=== PATIENT | female | born 1975 | race African-American/Black ===

== ENCOUNTER 2018-01-25 10:52 | Emergency (ER) | payer MEDICAID ==
[~2018-01-25] VITALS: Ht 160 cm; Wt 83.0 kg
[2018-01-25] MEDS ORDERED: KETOROLAC 60MG/2ML VIAL IM ONE (12:15)
[2018-01-25 13:17] VITALS: BP 161/92
== END 2018-01-25 13:23 | disposition home or self-care (01) ==
LOC: ER 10:52
DX: M72.2 Plantar fascial fibromatosis (principal); M25.562 Pain in left knee; I10 Essential (primary) hypertension
CPT/HCPCS: 73560; 96372; 99283; J1885

== ENCOUNTER 2021-08-10 02:32 | Inpatient (IN) | payer MEDICAID ==
[~2021-08-10] VITALS: Ht 165.1 cm; Wt 69.1 kg
[2021-08-10] VITALS (57 sets, daily range): BP systolic 107–181; BP diastolic 66–140
[~2021-08-10 02:32] MED LIST: ALBU18HF2 IH; ATEN-42 MT; ATEN50TA PO; BACL-141 PO; CLON0.3T PO; FLUT1DIS3 INH; GABA-290 PO; KEPP500 PO; LEVE500T98 MT; QUET100T MT; QUET100T PO; QUET50TA PO
[2021-08-10] MEDS ORDERED: METHYLPREDNISOLONE SOD SUCC 125 MG/2 ML VIAL IV STA (02:59)
[2021-08-10] MEDS ORDERED: KETAMINE HCL 50 MG/ML 10ML IV ONE ×2 (03:00→05:15)
[2021-08-10] MEDS ORDERED: ONDANSETRON HCL 4MG/2ML INJ IV ONE (03:00)
[2021-08-10 03:11] LABS: BASOPHILS % 1.3 % (0.0-2.0); EOSINOPHILS % 2.1 % (0.0-5.0); HEMATOCRIT. 35.2 % (36.0-48.0); HEMOGLOBIN. 11.3 g/dL (12.0-16.0); LYMPHOCYTES % 27.8 % (20.0-50.0); MEAN CORPUSCULAR HEMOGLOBIN 25.2 pg (28.0-32.0); MEAN CORPUSCULAR VOLUME 78.6 fL (81.0-99.0); MEAN PLATELET VOLUME 7.2 fl (7.4-10.4); MONOCYTES % 5.1 % (2.0-8.0); NEUTROPHILS % 63.7 % (40.0-76.0); PLATELET 384 x1000/uL (130-400); RED BLOOD CELL COUNT 4.48 mill/uL (4.2-5.4); RED CELL DISTRIBUTION WIDTH 16.4 % (11.6-14.6)
[2021-08-10] MEDS ORDERED: PROPOFOL 200MG/20ML VIAL IV ONE (03:30)
[2021-08-10 03:32] LABS: CHLORIDE 109 mEq/L (98-107)
[2021-08-10] MEDS ORDERED: PROPOFOL 10MG/ML 100ML 100 ML IV ONE (03:45)
[2021-08-10] MEDS ORDERED: MORPHINE SULFATE 2 MG/ML CPJ (NOT FOR IM USE) IV PRN (08:45)
[2021-08-10] MEDS ORDERED: NALOXONE HCL 0.4MG/ML VIAL IV PRN (08:45)
[2021-08-10] MEDS: PROPOFOL 10MG/ML 100ML 100 ML IV PRN ×2 (09:13→14:18)
[2021-08-10] MEDS ORDERED: SODIUM CHLORIDE 0.9% 1000ML BAG (SEPSIS BOLUS) IV ONE (10:45)
[2021-08-10] MEDS ORDERED: DOCUSATE SODIUM 100MG CAPSULE PO PRN (10:45)
[2021-08-10] MEDS ORDERED: LORAZEPAM 1MG TABLET PO PRN (10:45)
[2021-08-10] MEDS ORDERED: LORAZEPAM 0.5MG TABLET PO PRN (10:45)
[2021-08-10] MEDS ORDERED: NALOXONE HCL 0.4 MG/ML 1ML VIAL IV PRN (10:45)
[2021-08-10] MEDS ORDERED: ACETAMINOPHEN 325MG TABLET PO PRN ×2 (10:45)
[2021-08-10] MEDS ORDERED: ONDANSETRON HCL 4MG/2ML INJ IV PRN (10:45)
[2021-08-10] MEDS ORDERED: CLONIDINE 0.1MG TABLET PO PRN (10:45)
[2021-08-10] MEDS: DEXT 5%/0.45% NACL 1000ML 1,000 ML IV SCH (11:20)
[2021-08-10 11:31] LABS: BG BASE EXCESS -1.8 mmol/L (-2.0-2.0); BG CARBOXYHEMOGLOBIN 0.3 % (0.5-1.5); BG DEOXYHEMOGLOBIN 0.8 % (0.0-5.0); BG HCO3 ACT 23.3 mmol/L (22.0-26.0); BG METHEMOGLOBIN 0.4 % (0.0-1.5); BG OXYGEN SATURATION 99.2 % (92.0-98.5); BG OXYHEMOGLOBIN 98.5 % (94.0-97.0); BG PCO2 40.9 mmHg (35.0-45.0); BG PH 7.374 (7.350-7.450); BG PO2 187.1 mmHg (75.0-100.0); BG SAMPLE SITE RIGHT BRACHIAL; BG TOTAL HEMOGLOBIN 11.4 g/dL (12.0-18.0); BG VENT MODE VENT - AC
[2021-08-10] MEDS: HYDROMORPHONE HCL/PF 2MG/ML CPJ IV PRN ×2 (12:54→21:48)
[2021-08-10] MEDS: FENTANYL 2500MCG/250ML PMX 250 ML IV PRN (13:36)
[2021-08-10] MEDS ORDERED: CHLORDIAZEPOXIDE 25MG CAPSULE PO SCH (14:00)
[2021-08-10] MEDS: LABETALOL 5MG/ML SYR 20 MG/4 ML SYRINGE IV PRN (14:29)
[2021-08-10] MEDS ORDERED: ATOR40TA70 PO (15:21)
[2021-08-10] MEDS ORDERED: AMLO10TA80 PO (15:21)
[2021-08-10] MEDS ORDERED: LACO100T4 (15:21)
[2021-08-10] MEDS ORDERED: NON FORMULARY PATIENT HOME MED XX SCH (15:30)
[2021-08-10] MEDS ORDERED: LACO50TA6 (16:15)
[2021-08-10 16:29] LABS: INR 1.1; PARTIAL THROMBOPLASTIN TIME < 21.0 sec (23.4-31.0); PROTHROMBIN TIME 11.6 sec (9.6-11.0)
[2021-08-10 16:46] LABS: TOTAL IRON BINDING CAPACITY 557 ug/dL (250-450)
[2021-08-10 16:50] LABS: HCG SCREEN NEGATIVE
[2021-08-10 16:51] LABS: *AMPHETAMINES SCREEN URINE NEGATIVE (NEGATIVE); *BARBITURATES SCREEN URINE NEGATIVE (NEGATIVE); *BENZODIAZEPINES SCREEN URINE NEGATIVE (NEGATIVE); *COCAINE SCREEN URINE NEGATIVE (NEGATIVE); METHADONE URINE SCREEN NEGATIVE (NEGATIVE); PHENCYCLIDINE URINE SCREEN NEGATIVE (NEGATIVE)
[2021-08-10] MEDS: MIDAZOLAM 100MG/100ML PMX 100 ML IV PRN (16:57)
[2021-08-10] MEDS: ATORVASTATIN CALCIUM 40MG TABLET PO SCH (17:03)
[2021-08-10 17:07] LABS: CANNABINOID URINE SCREEN PRESUMTIVE POSITIVE (NEGATIVE); OPIATES URINE SCREEN PRESUMTIVE POSITIVE (NEGATIVE)
[2021-08-10] MEDS: IPRATROPIUM/ALBUTEROL 0.5-3(2.5)MG/3ML NEB HHN PRN (20:24)
[2021-08-10] MEDS: LACOSAMIDE 100 MG TABLET PO SCH (21:47)
[2021-08-10] MEDS: LEVETIRACETAM 500MG TABLET PO SCH (21:47)
[2021-08-11] VITALS (79 sets, daily range): BP systolic 89–175; BP diastolic 30–163
[2021-08-11] MEDS: DEXT 5%/0.45% NACL 1000ML 1,000 ML IV SCH ×2 (01:28→15:51)
[2021-08-11] MEDS: HYDROMORPHONE HCL/PF 2MG/ML CPJ IV PRN ×6 (01:29→20:45)
[2021-08-11] MEDS: FENTANYL 2500MCG/250ML PMX 250 ML IV PRN (05:52)
[2021-08-11 06:17] LABS: BASOPHILS % 0.8 % (0.0-2.0); EOSINOPHILS % 0.2 % (0.0-5.0); HEMATOCRIT. 26.9 % (36.0-48.0); HEMOGLOBIN. 8.6 g/dL (12.0-16.0); MEAN CORPUSCULAR HEMOGLOBIN 25.2 pg (28.0-32.0); MEAN CORPUSCULAR VOLUME 79.1 fL (81.0-99.0); MEAN PLATELET VOLUME 8.5 fl (7.4-10.4); MONOCYTES % 8.2 % (2.0-8.0); NEUTROPHILS % 78.8 % (40.0-76.0); PLATELET 210 x1000/uL (130-400); RED BLOOD CELL COUNT 3.41 mill/uL (4.2-5.4); RED CELL DISTRIBUTION WIDTH 16.5 % (11.6-14.6)
[2021-08-11 06:33] LABS: CHLORIDE 108 mEq/L (98-107)
[2021-08-11] MEDS: LACOSAMIDE 100 MG TABLET PO SCH ×2 (09:00→21:59)
[2021-08-11] MEDS: ATORVASTATIN CALCIUM 40MG TABLET PO SCH (09:00)
[2021-08-11] MEDS: LEVETIRACETAM 500MG TABLET PO SCH ×2 (09:00→21:59)
[2021-08-11 09:45] LABS: BG CARBOXYHEMOGLOBIN 0.3 % (0.5-1.5); BG FRACTION INSPIRED OXYGEN 40; BG METHEMOGLOBIN 0.3 % (0.0-1.5); BG OXYHEMOGLOBIN 96.4 % (94.0-97.0); BG PH 7.417 (7.350-7.450); BG PO2 93.7 mmHg (75.0-100.0); BG SAMPLE SITE RIGHT RADIAL; BG TOTAL HEMOGLOBIN 10.1 g/dL (12.0-18.0); BG VENT MODE VENT - AC
[2021-08-11] MEDS ORDERED: LEVETIRACETAM 500MG PREMIX 100 ML IV NR (10:00)
[2021-08-11] MEDS ORDERED: LEVETIRACETAM 500 MG in SODIUM CHLORIDE 0.9% 100 ML IV ONE (10:00)
[2021-08-11] MEDS ORDERED: LIDOCAINE HCL/PF 1% 10 MG/ML 5ML VIAL ONE (12:35)
[2021-08-11] MEDS ORDERED: ROCURONIUM BROMIDE 10MG/ML VIAL 5ML IV ONE (13:58)
[2021-08-11] MEDS ORDERED: MIDAZOLAM HCL 5 MG/5 ML VIAL ONE (14:19)
[2021-08-11] MEDS ORDERED: FENTANYL CITRATE/PF 50MCG/ML 2ML VIAL ONE ×2 (14:20→14:44)
[2021-08-11] MEDS ORDERED: PROPOFOL 200MG/20ML VIAL IV ONE (14:42)
[2021-08-11] MEDS: MIDAZOLAM 100MG/100ML PMX 100 ML IV PRN (15:52)
[2021-08-12] VITALS (84 sets, daily range): BP systolic 93–189; BP diastolic 35–129
[2021-08-12] MEDS: HYDROMORPHONE HCL/PF 2MG/ML CPJ IV PRN ×5 (01:36→23:26)
[2021-08-12 05:15] LABS: BASOPHILS % 0.3 % (0.0-2.0); EOSINOPHILS % 1.3 % (0.0-5.0); HEMATOCRIT. 27.6 % (36.0-48.0); LYMPHOCYTES % 15.9 % (20.0-50.0); MEAN CORPUSCULAR HEMOGLOBIN 25.5 pg (28.0-32.0); MEAN CORPUSCULAR VOLUME 78.4 fL (81.0-99.0); MONOCYTES % 9.4 % (2.0-8.0); NEUTROPHILS % 73.1 % (40.0-76.0); PLATELET 237 x1000/uL (130-400); RED BLOOD CELL COUNT 3.53 mill/uL (4.2-5.4); RED CELL DISTRIBUTION WIDTH 16.7 % (11.6-14.6)
[2021-08-12 05:21] LABS: CHLORIDE 104 mEq/L (98-107)
[2021-08-12] MEDS: DEXT 5%/0.45% NACL 1000ML 1,000 ML IV SCH ×2 (05:31→19:57)
[2021-08-12] MEDS: ATORVASTATIN CALCIUM 40MG TABLET PO SCH (09:09)
[2021-08-12] MEDS: LACOSAMIDE 100 MG TABLET PO SCH ×3 (09:09→21:24)
[2021-08-12] MEDS: LEVETIRACETAM 500MG TABLET PO SCH ×3 (09:09→21:24)
[2021-08-12] MEDS: FENTANYL 2500MCG/250ML PMX 250 ML IV PRN (09:12)
[2021-08-12 11:10] LABS: BG BASE EXCESS -0.3 mmol/L (-2.0-2.0); BG CARBOXYHEMOGLOBIN 0.2 % (0.5-1.5); BG FRACTION INSPIRED OXYGEN 40; BG HCO3 ACT 22.7 mmol/L (22.0-26.0); BG METHEMOGLOBIN 1.3 % (0.0-1.5); BG OXYHEMOGLOBIN 95.5 % (94.0-97.0); BG PCO2 31.3 mmHg (35.0-45.0); BG PH 7.479 (7.350-7.450); BG PO2 97.7 mmHg (75.0-100.0); BG SAMPLE SITE RIGHT RADIAL; BG TOTAL HEMOGLOBIN 9.5 g/dL (12.0-18.0); BG VENT MODE VENT - AC
[2021-08-12 16:25] LABS: BG BASE EXCESS -2.3 mmol/L (-2.0-2.0); BG CARBOXYHEMOGLOBIN 0.3 % (0.5-1.5); BG DEOXYHEMOGLOBIN 11.7 % (0.0-5.0); BG FRACTION INSPIRED OXYGEN 35; BG HCO3 ACT 21.2 mmol/L (22.0-26.0); BG METHEMOGLOBIN 0.2 % (0.0-1.5); BG OXYGEN SATURATION 88.2 % (92.0-98.5); BG OXYHEMOGLOBIN 87.8 % (94.0-97.0); BG PCO2 32.3 mmHg (35.0-45.0); BG PH 7.436 (7.350-7.450); BG PO2 54.8 mmHg (75.0-100.0); BG SAMPLE SITE RIGHT BRACHIAL; BG TOTAL HEMOGLOBIN 10.3 g/dL (12.0-18.0); BG VENT MODE VENT - CPAP
[2021-08-12] MEDS ORDERED: DIPHENHYDRAMINE 25MG CAPSULE PO PRN (18:00)
[2021-08-13] VITALS (25 sets, daily range): BP systolic 97–180; BP diastolic 53–110
[2021-08-13] MEDS ORDERED: HYDROMORPHONE HCL/PF 2MG/ML CPJ IV PRN (00:45)
[2021-08-13] MEDS: LEVETIRACETAM 500MG PREMIX 100 ML IV SCH ×2 (01:12→13:14)
[2021-08-13] MEDS: HYDROMORPHONE HCL/PF 2MG/ML CPJ IV PRN ×11 (01:31→22:07)
[2021-08-13] MEDS: ATORVASTATIN CALCIUM 40MG TABLET PO SCH ×2 (09:00→09:14)
[2021-08-13] MEDS: LACOSAMIDE 100 MG TABLET PO SCH ×3 (09:00→20:09)
[2021-08-13] MEDS: DEXT 5%/0.45% NACL 1000ML 1,000 ML IV SCH (10:15)
[2021-08-13 11:19] LABS: BASOPHILS % 0.2 % (0.0-2.0); EOSINOPHILS % 2.1 % (0.0-5.0); HEMATOCRIT. 27.8 % (36.0-48.0); HEMOGLOBIN. 9.1 g/dL (12.0-16.0); LYMPHOCYTES % 11.2 % (20.0-50.0); MEAN CORPUSCULAR HEMOGLOBIN 25.7 pg (28.0-32.0); MEAN PLATELET VOLUME 8.2 fl (7.4-10.4); MONOCYTES % 12.8 % (2.0-8.0); NEUTROPHILS % 73.7 % (40.0-76.0); PLATELET 238 x1000/uL (130-400); RED BLOOD CELL COUNT 3.56 mill/uL (4.2-5.4); RED CELL DISTRIBUTION WIDTH 16.2 % (11.6-14.6)
[2021-08-13 11:52] LABS: CHLORIDE 101 mEq/L (98-107)
[2021-08-13] MEDS ORDERED: POTASSIUM CHLORIDE INJ 40 MEQ in DEXT 5% WATER 250 ML IV SCH (14:00)
[2021-08-13] MEDS: IPRATROPIUM/ALBUTEROL 0.5-3(2.5)MG/3ML NEB HHN PRN (17:50)
[2021-08-14] VITALS (14 sets, daily range): BP systolic 100–182; BP diastolic 56–106
[2021-08-14] MEDS: HYDROMORPHONE HCL/PF 2MG/ML CPJ IV PRN ×7 (00:17→22:10)
[2021-08-14] MEDS: LEVETIRACETAM 500MG PREMIX 100 ML IV SCH ×2 (02:27→12:28)
[2021-08-14] MEDS: DEXT 5%/0.45% NACL 1000ML 1,000 ML IV SCH ×2 (02:28→14:08)
[2021-08-14 08:56] LABS: HEMATOCRIT. 31.1 % (36.0-48.0); HEMOGLOBIN. 10.2 g/dL (12.0-16.0); MEAN CORPUSCULAR HEMOGLOBIN 24.9 pg (28.0-32.0); MEAN CORPUSCULAR VOLUME 75.6 fL (81.0-99.0); RED BLOOD CELL COUNT 4.11 mill/uL (4.2-5.4); RED CELL DISTRIBUTION WIDTH 16.1 % (11.6-14.6)
[2021-08-14] MEDS: LACOSAMIDE 100 MG TABLET PO SCH ×2 (09:00→21:00)
[2021-08-14] MEDS: ATORVASTATIN CALCIUM 40MG TABLET PO SCH (09:00)
[2021-08-14 09:07] LABS: CHLORIDE 97 mEq/L (98-107)
[2021-08-14 10:21] LABS: PLATELET ESTIMATE NORMAL
[2021-08-14 10:25] LABS: MEAN PLATELET VOLUME 7.6 fl (7.4-10.4); PLATELET 300 x1000/uL (130-400)
[2021-08-14] MEDS: KETOROLAC 30MG/ML VIAL IV PRN ×2 (10:46→18:11)
[2021-08-14] MEDS ORDERED: POTASSIUM CHLORIDE INJ 40 MEQ in DEXT 5% WATER 250 ML IV SCH ×2 (12:00→14:00)
[2021-08-14 12:03] LABS: BG BASE EXCESS -4.2 mmol/L (-2.0-2.0); BG CARBOXYHEMOGLOBIN 0.3 % (0.5-1.5); BG DEOXYHEMOGLOBIN 9.4 % (0.0-5.0); BG FRACTION INSPIRED OXYGEN 21; BG HCO3 ACT 19.3 mmol/L (22.0-26.0); BG METHEMOGLOBIN 0.2 % (0.0-1.5); BG OXYGEN SATURATION 90.6 % (92.0-98.5); BG OXYHEMOGLOBIN 90.1 % (94.0-97.0); BG PCO2 30.4 mmHg (35.0-45.0); BG PH 7.421 (7.350-7.450); BG PO2 59.1 mmHg (75.0-100.0); BG SAMPLE SITE RIGHT RADIAL; BG TOTAL HEMOGLOBIN 10.8 g/dL (12.0-18.0); BG VENT MODE ROOM AIR
[2021-08-14] MEDS: PIPERACILLIN/TAZOBACTAM 3.375 G in DEXTROSE 5% WATER 50 ML IV SCH ×2 (14:07→21:21)
[2021-08-15] VITALS (25 sets, daily range): BP systolic 97–187; BP diastolic 50–139
[2021-08-15] MEDS: LEVETIRACETAM 500MG PREMIX 100 ML IV SCH ×2 (00:11→14:16)
[2021-08-15] MEDS: HYDROMORPHONE HCL/PF 2MG/ML CPJ IV PRN ×4 (05:22→21:59)
[2021-08-15] MEDS: DEXT 5%/0.45% NACL 1000ML 1,000 ML IV SCH ×2 (05:23→18:39)
[2021-08-15] MEDS: PIPERACILLIN/TAZOBACTAM 3.375 G in DEXTROSE 5% WATER 50 ML IV SCH ×3 (05:23→22:06)
[2021-08-15] MEDS: KETOROLAC 30MG/ML VIAL IV PRN ×2 (07:51→18:56)
[2021-08-15] MEDS: ATORVASTATIN CALCIUM 40MG TABLET PO SCH (08:20)
[2021-08-15] MEDS: LACOSAMIDE 100 MG TABLET PO SCH ×2 (08:20→21:00)
[2021-08-15] MEDS: IPRATROPIUM/ALBUTEROL 0.5-3(2.5)MG/3ML NEB HHN PRN ×3 (08:46→16:26)
[2021-08-15 10:09] LABS: BG BASE EXCESS -2.3 mmol/L (-2.0-2.0); BG CARBOXYHEMOGLOBIN 0.1 % (0.5-1.5); BG DEOXYHEMOGLOBIN 3.7 % (0.0-5.0); BG FRACTION INSPIRED OXYGEN 40; BG HCO3 ACT 21.3 mmol/L (22.0-26.0); BG METHEMOGLOBIN 1.2 % (0.0-1.5); BG OXYGEN SATURATION 96.3 % (92.0-98.5); BG PCO2 32.2 mmHg (35.0-45.0); BG PH 7.438 (7.350-7.450); BG PO2 92.3 mmHg (75.0-100.0); BG SAMPLE SITE RIGHT RADIAL; BG TOTAL HEMOGLOBIN 9.7 g/dL (12.0-18.0); BG VENT MODE COOL AEROSOL
[2021-08-15] MEDS ORDERED: SODIUM CHLORIDE 3% FOR INH 15ML VIAL NEB INH SCH (12:00)
[2021-08-15] MEDS: SODIUM CHLORIDE 3% FOR INH 4ML UD NEB INH SCH (12:33)
[2021-08-15 16:15] LABS: HEMATOCRIT. 29.8 % (36.0-48.0); HEMOGLOBIN. 9.5 g/dL (12.0-16.0); MEAN CORPUSCULAR HEMOGLOBIN 25.4 pg (28.0-32.0); MEAN CORPUSCULAR VOLUME 79.7 fL (81.0-99.0); MEAN PLATELET VOLUME 8.1 fl (7.4-10.4); PLATELET 273 x1000/uL (130-400); RED BLOOD CELL COUNT 3.75 mill/uL (4.2-5.4); RED CELL DISTRIBUTION WIDTH 16.4 % (11.6-14.6)
[2021-08-15] MEDS: ACETYLCYSTEINE 100MG/ML 10% VIAL 4ML INH SCH (16:25)
[2021-08-15 16:30] LABS: CHLORIDE 101 mEq/L (98-107)
[2021-08-15] MEDS ORDERED: NALOXONE HCL 0.4MG/ML VIAL IV PRN (17:30)
[2021-08-15 17:54] LABS: PLATELET ESTIMATE NORMAL
[2021-08-16] VITALS (19 sets, daily range): BP systolic 106–174; BP diastolic 60–105
[2021-08-16] MEDS: KETOROLAC 30MG/ML VIAL IV PRN ×5 (00:01→23:36)
[2021-08-16] MEDS: LEVETIRACETAM 500MG PREMIX 100 ML IV SCH ×2 (00:02→12:26)
[2021-08-16] MEDS: SODIUM CHLORIDE 3% FOR INH 4ML UD NEB INH SCH ×2 (00:03→05:39)
[2021-08-16] MEDS: IPRATROPIUM/ALBUTEROL 0.5-3(2.5)MG/3ML NEB HHN PRN (00:20)
[2021-08-16] MEDS: ACETYLCYSTEINE 100MG/ML 10% VIAL 4ML INH SCH (00:20)
[2021-08-16] MEDS: HYDROMORPHONE HCL/PF 2MG/ML CPJ IV PRN ×4 (03:41→21:21)
[2021-08-16] MEDS: PIPERACILLIN/TAZOBACTAM 3.375 G in DEXTROSE 5% WATER 50 ML IV SCH ×3 (05:38→22:30)
[2021-08-16 06:57] LABS: HEMATOCRIT. 24.8 % (36.0-48.0); HEMOGLOBIN. 8.4 g/dL (12.0-16.0); MEAN CORPUSCULAR HEMOGLOBIN 27.7 pg (28.0-32.0); MEAN CORPUSCULAR VOLUME 81.5 fL (81.0-99.0); RED BLOOD CELL COUNT 3.05 mill/uL (4.2-5.4); RED CELL DISTRIBUTION WIDTH 16.3 % (11.6-14.6)
[2021-08-16 07:29] LABS: CHLORIDE 104 mEq/L (98-107)
[2021-08-16] MEDS: LACOSAMIDE 100 MG TABLET PO SCH ×2 (08:32→21:00)
[2021-08-16] MEDS: ATORVASTATIN CALCIUM 40MG TABLET PO SCH (08:32)
[2021-08-16] MEDS: DEXT 5%/0.45% NACL 1000ML 1,000 ML IV SCH ×2 (08:49→23:37)
[2021-08-16] MEDS: KCL 20MEQ/100ML PREMIX 100 ML IV SCH ×2 (08:49→12:49)
[2021-08-16 08:53] LABS: MEAN PLATELET VOLUME 7.9 fl (7.4-10.4); PLATELET ESTIMATE NORMAL
[2021-08-16 08:54] LABS: PLATELET 270 x1000/uL (130-400)
[2021-08-16] MEDS ORDERED: HYDROMORPHONE HCL/PF 2MG/ML CPJ IV SCH (12:30)
[2021-08-17] VITALS (16 sets, daily range): BP systolic 85–212; BP diastolic 30–115
[2021-08-17] MEDS: LEVETIRACETAM 500MG PREMIX 100 ML IV SCH ×2 (00:37→13:31)
[2021-08-17] MEDS: HYDROMORPHONE HCL/PF 2MG/ML CPJ IV PRN ×3 (03:43→17:07)
[2021-08-17] MEDS: PIPERACILLIN/TAZOBACTAM 3.375 G in DEXTROSE 5% WATER 50 ML IV SCH ×3 (05:58→22:00)
[2021-08-17] MEDS: KETOROLAC 30MG/ML VIAL IV PRN ×3 (06:00→18:19)
[2021-08-17] MEDS: ATORVASTATIN CALCIUM 40MG TABLET PO SCH (09:00)
[2021-08-17] MEDS: LACOSAMIDE 100 MG TABLET PO SCH ×2 (09:00→21:00)
[2021-08-17] MEDS ORDERED: HYDROMORPHONE HCL/PF 2MG/ML CPJ IV NR (09:45)
[2021-08-17 14:51] LABS: HEMOGLOBIN. 8.6 g/dL (12.0-16.0); MEAN CORPUSCULAR HEMOGLOBIN 24.8 pg (28.0-32.0); MEAN CORPUSCULAR VOLUME 77.5 fL (81.0-99.0); MEAN PLATELET VOLUME 7.5 fl (7.4-10.4); PLATELET 340 x1000/uL (130-400); RED BLOOD CELL COUNT 3.48 mill/uL (4.2-5.4); RED CELL DISTRIBUTION WIDTH 16.4 % (11.6-14.6)
[2021-08-17 15:35] LABS: CHLORIDE 107 mEq/L (98-107)
[2021-08-17] MEDS: DEXT 5%/0.45% NACL 1000ML 1,000 ML IV SCH (17:07)
[2021-08-17] MEDS: LABETALOL 5MG/ML SYR 20 MG/4 ML SYRINGE IV PRN (17:07)
[2021-08-17 17:30] LABS: PLATELET ESTIMATE NORMAL
[2021-08-18] VITALS (9 sets, daily range): BP systolic 70–178; BP diastolic 46–105
[2021-08-18] MEDS: LEVETIRACETAM 500MG PREMIX 100 ML IV SCH (01:00)
[2021-08-18] MEDS: HYDROMORPHONE HCL/PF 2MG/ML CPJ IM PRN ×4 (02:43→20:16)
[2021-08-18] MEDS: DEXT 5%/0.45% NACL 1000ML 1,000 ML IV SCH (04:32)
[2021-08-18] MEDS: PIPERACILLIN/TAZOBACTAM 3.375 G in DEXTROSE 5% WATER 50 ML IV SCH ×3 (05:53→22:00)
[2021-08-18 08:36] LABS: HEMATOCRIT. 25.3 % (36.0-48.0); HEMOGLOBIN. 8.2 g/dL (12.0-16.0); MEAN CORPUSCULAR HEMOGLOBIN 24.7 pg (28.0-32.0); MEAN CORPUSCULAR VOLUME 76.2 fL (81.0-99.0); MEAN PLATELET VOLUME 7.4 fl (7.4-10.4); PLATELET 363 x1000/uL (130-400); RED BLOOD CELL COUNT 3.32 mill/uL (4.2-5.4); RED CELL DISTRIBUTION WIDTH 16.2 % (11.6-14.6)
[2021-08-18] MEDS: LACOSAMIDE 100 MG TABLET PO SCH ×2 (08:44→20:14)
[2021-08-18] MEDS: ATORVASTATIN CALCIUM 40MG TABLET PO SCH (08:44)
[2021-08-18 08:49] LABS: CHLORIDE 105 mEq/L (98-107)
[2021-08-18] MEDS ORDERED: BARIUM SULFATE 176 GM SUSP.RECON ONE (10:02)
[2021-08-18] MEDS ORDERED: KCL 20MEQ/100ML PREMIX 100 ML IV SCH (12:00)
[2021-08-18 12:57] LABS: PLATELET ESTIMATE NORMAL
[2021-08-18] MEDS ORDERED: POTASSIUM CHLORIDE 20MEQ TABLET SR PO NR (17:30)
[2021-08-18] MEDS: LEVETIRACETAM 500MG TABLET PO SCH (20:15)
[2021-08-19] VITALS (9 sets, daily range): BP systolic 123–163; BP diastolic 72–98
[2021-08-19] MEDS: HYDROMORPHONE HCL/PF 2MG/ML CPJ IM PRN ×3 (02:41→15:03)
[2021-08-19] MEDS: PIPERACILLIN/TAZOBACTAM 3.375 G in DEXTROSE 5% WATER 50 ML IV SCH (05:22)
[2021-08-19] MEDS: ATORVASTATIN CALCIUM 40MG TABLET PO SCH (08:54)
[2021-08-19] MEDS: LACOSAMIDE 100 MG TABLET PO SCH (08:54)
[2021-08-19] MEDS: LEVETIRACETAM 500MG TABLET PO SCH (08:54)
[2021-08-19] MEDS: DEXT 5%/0.45% NACL 1000ML 1,000 ML IV SCH ×2 (09:15→10:00)
[2021-08-19] MEDS ORDERED: FOLIC ACID 1MG TABLET PO SCH (10:15)
[2021-08-19] MEDS ORDERED: FOLI-43 MT (10:19)
[2021-08-19] MEDS ORDERED: FERR325T6 MT (10:19)
[2021-08-19] MEDS ORDERED: GUAI600T44 MT (10:28)
[2021-08-19] MEDS ORDERED: FERROUS SULFATE 325MG TABLET PO SCH (13:00)
== END 2021-08-19 16:15 | disposition home health service (06) | DRG 813 ==
LOC: ER 02:32 → CVICU 05:48 → ENRESERV 07:23 → 5EST 08-18 13:00
PROVIDERS: ADMIT Internal Medicine; ATTEND Internal Medicine
PROC: 0BH17EZ Insertion of Endotracheal Airway into Trachea, Via Natural or Artificial Opening (ICD-10-PCS; principal; 2021-08-10)
PROC: 5A1945Z Respiratory Ventilation, 24-96 Consecutive Hours (ICD-10-PCS; 2021-08-10)
PROC: 0W9B30Z Drainage of Left Pleural Cavity with Drainage Device, Percutaneous Approach (ICD-10-PCS; 2021-08-10)
PROC: 0W9930Z Drainage of Right Pleural Cavity with Drainage Device, Percutaneous Approach (ICD-10-PCS; 2021-08-10)
PROC: 0W9930Z Drainage of Right Pleural Cavity with Drainage Device, Percutaneous Approach (ICD-10-PCS; 2021-08-11)
PROC: 0B21XFZ Change Tracheostomy Device in Trachea, External Approach (ICD-10-PCS; 2021-08-11)
DX: T85.628A Displacement of other specified internal prosthetic devices, implants and grafts, initial encounter (principal); J96.20 Acute and chronic respiratory failure, unspecified whether with hypoxia or hypercapnia; E87.2 Acidosis; J98.2 Interstitial emphysema; I31.9 Disease of pericardium, unspecified; D50.9 Iron deficiency anemia, unspecified; F10.20 Alcohol dependence, uncomplicated; J93.9 Pneumothorax, unspecified; I10 Essential (primary) hypertension; E53.8 Deficiency of other specified B group vitamins; F17.210 Nicotine dependence, cigarettes, uncomplicated; Z20.822 Contact with and (suspected) exposure to COVID-19; Y83.8 Other surgical procedures as the cause of abnormal reaction of the patient, or of later complication, without mention of misadventure at the time of the procedure; G40.909 Epilepsy, unspecified, not intractable, without status epilepticus; N20.0 Calculus of kidney; Z78.1 Physical restraint status; Z86.16 Personal history of COVID-19; Z79.899 Other long term (current) drug therapy; Z93.0 Tracheostomy status; Y92.89 Other specified places as the place of occurrence of the external cause; Z71.6 Tobacco abuse counseling; R00.0 Tachycardia, unspecified; Z86.19 Personal history of other infectious and parasitic diseases
CPT/HCPCS: 36415; 36600; 71045; 71250; 74018; 74176; 74230; 76604; 80048; 80053; 80305; 80339; 82375; 82607; 82728; 82746; 82805; 83540; 83550; 83605; 83880; 84484; 84703; 85025; 85379; 87070; 87426; 92610; 92611; 93005; 94002; 94003; 94640; 94660; 99285; C1893; J1170; J1885; J1953; J2250; J2270; J2405; J2543; J2704; J2930; J3010; J3480; J3490; J7060; J7608; Q0163

== ENCOUNTER 2021-09-09 02:19 | Inpatient (IN) | payer MEDICAID ==
[~2021-09-09] VITALS: Ht 157.5 cm; Wt 61.8 kg
[~2021-09-09 02:19] MED LIST changes: +AMLO10TA80 PO; -ATEN50TA PO; +ATOR40TA70 PO; -CLON0.3T PO; +FERR325T6 MT; +FOLI-43 MT; +GUAI600T44 MT; +LACO100T4; +LACO50TA6; -LEVE500T98 MT; -QUET100T PO; -QUET50TA PO
[2021-09-09] MEDS ORDERED: METHYLPREDNISOLONE SOD SUCC 125 MG/2 ML VIAL IV STA (02:32)
[2021-09-09] MEDS ORDERED: IPRATROPIUM BROMIDE (0.02%) 0.5MG/2.5ML NEB HHN STA (02:32)
[2021-09-09] MEDS ORDERED: ALBUTEROL (0.083%) 2.5MG/3ML NEB HHN STA (02:32)
[2021-09-09] MEDS ORDERED: MAGNESIUM 2 G PREMIX 50 ML IV ONE (02:45)
[2021-09-09] MEDS ORDERED: RACEPINEPHRINE 2.25% 0.5ML NEB VIAL HHN ONE (02:45)
[2021-09-09] MEDS ORDERED: ASPIRIN 81MG TABLET PO ONE (02:45)
[2021-09-09 03:13] LABS: BASOPHILS % 0.5 % (0.0-2.0); EOSINOPHILS % 3.2 % (0.0-5.0); HEMATOCRIT. 34.7 % (36.0-48.0); HEMOGLOBIN. 10.8 g/dL (12.0-16.0); LYMPHOCYTES % 22.9 % (20.0-50.0); MEAN CORPUSCULAR HEMOGLOBIN 24.2 pg (28.0-32.0); MEAN CORPUSCULAR VOLUME 77.6 fL (81.0-99.0); MEAN PLATELET VOLUME 7.4 fl (7.4-10.4); MONOCYTES % 10.3 % (2.0-8.0); NEUTROPHILS % 63.1 % (40.0-76.0); PLATELET 278 x1000/uL (130-400); RED BLOOD CELL COUNT 4.48 mill/uL (4.2-5.4); RED CELL DISTRIBUTION WIDTH 17.1 % (11.6-14.6)
[2021-09-09] MEDS ORDERED: CEFTRIAXONE 1 G PREMIX 50 ML IV NR (03:15)
[2021-09-09 03:22] LABS: CHLORIDE 110 mEq/L (98-107)
[2021-09-09 03:31] LABS: ETHANOL BLOOD < 10 mg/dL
[2021-09-09] MEDS ORDERED: AZITHROMYCIN 500MG/250ML 250 ML IV SCH (04:00)
[2021-09-09] MEDS ORDERED: METHYLPREDNISOLONE SOD SUCC 125 MG/2 ML VIAL IV NR ×2 (04:21→14:30)
[2021-09-09] MEDS ORDERED: ASPIRIN 81MG TABLET PO NR (04:30)
[2021-09-09 06:21] LABS: *AMPHETAMINES SCREEN URINE NEGATIVE (NEGATIVE); *BARBITURATES SCREEN URINE NEGATIVE (NEGATIVE); *BENZODIAZEPINES SCREEN URINE NEGATIVE (NEGATIVE); *COCAINE SCREEN URINE NEGATIVE (NEGATIVE); METHADONE URINE SCREEN NEGATIVE (NEGATIVE); OPIATES URINE SCREEN NEGATIVE (NEGATIVE); PHENCYCLIDINE URINE SCREEN NEGATIVE (NEGATIVE)
[2021-09-09 06:28] LABS: CANNABINOID URINE SCREEN PRESUMTIVE POSITIVE (NEGATIVE)
[2021-09-09] MEDS ORDERED: NALOXONE HCL 0.4MG/ML VIAL IV PRN (06:30)
[2021-09-09] MEDS: RACEPINEPHRINE 2.25% 0.5ML NEB VIAL HHN PRN ×4 (06:35→16:32)
[2021-09-09] MEDS: HYDRALAZINE 20MG/ML VIAL IV PRN (06:40)
[2021-09-09] MEDS: MORPHINE SULFATE 4 MG/ML CPJ (NOT FOR IM USE) IV PRN ×3 (06:40→20:08)
[2021-09-09 09:30] VITALS: BP 166/98
[2021-09-09] MEDS ORDERED: BACLOFEN 10MG TABLET PO PRN (10:00)
[2021-09-09] MEDS: AMLODIPINE 10MG TABLET PO SCH (10:16)
[2021-09-09] MEDS: GABAPENTIN 300MG CAPSULE PO PRN ×2 (10:16→20:09)
[2021-09-09 10:46] LABS: BG CARBOXYHEMOGLOBIN 0.3 % (0.5-1.5); BG DEOXYHEMOGLOBIN 0.1 % (0.0-5.0); BG FRACTION INSPIRED OXYGEN 100; BG HCO3 ACT 25.1 mmol/L (22.0-26.0); BG METHEMOGLOBIN 0.4 % (0.0-1.5); BG OXYGEN SATURATION 99.9 % (92.0-98.5); BG OXYHEMOGLOBIN 99.2 % (94.0-97.0); BG PCO2 42.6 mmHg (35.0-45.0); BG PH 7.388 (7.350-7.450); BG PO2 452.8 mmHg (75.0-100.0); BG SAMPLE SITE RIGHT RADIAL; BG TOTAL HEMOGLOBIN 10.9 g/dL (12.0-18.0); BG VENT MODE MASK - NRB
[2021-09-09 11:09] VITALS: BP 166/98
[2021-09-09] MEDS ORDERED: IPRATROPIUM/ALBUTEROL 0.5-3(2.5)MG/3ML NEB HHN PRN (11:15)
[2021-09-09 11:57] VITALS: BP 133/92
[2021-09-09] MEDS: IPRATROPIUM/ALBUTEROL 0.5-3(2.5)MG/3ML NEB HHN SCH ×3 (12:24→20:22)
[2021-09-09] MEDS: METHYLPREDNISOLONE SOD SUCC 125 MG/2 ML VIAL IV SCH ×2 (13:43→20:08)
[2021-09-09] MEDS ORDERED: POTASSIUM CHLORIDE 20MEQ TABLET SR PO NR (14:15)
[2021-09-09] MEDS: ACETYLCYSTEINE 100MG/ML 10% VIAL 4ML INH SCH (16:32)
[2021-09-09 17:51] VITALS: BP 150/84
[2021-09-09 20:00] VITALS: BP_SYST 100; BP_SYST 128; BP_DIAS 70; BP_DIAS 73
[2021-09-09] MEDS: ATORVASTATIN CALCIUM 40MG TABLET PO SCH (20:09)
[2021-09-09] MEDS: ATENOLOL 25MG TABLET PO SCH (20:10)
[2021-09-09] MEDS ORDERED: QUETIAPINE FUMARATE 50MG TABLET PO SCH (21:00)
[2021-09-09 21:09] LABS: BG BASE EXCESS -3.6 mmol/L (-2.0-2.0); BG CARBOXYHEMOGLOBIN 0.3 % (0.5-1.5); BG DEOXYHEMOGLOBIN 1.7 % (0.0-5.0); BG FRACTION INSPIRED OXYGEN 32; BG HCO3 ACT 22.3 mmol/L (22.0-26.0); BG METHEMOGLOBIN 0.2 % (0.0-1.5); BG OXYGEN SATURATION 98.3 % (92.0-98.5); BG OXYHEMOGLOBIN 97.8 % (94.0-97.0); BG PCO2 43.9 mmHg (35.0-45.0); BG PH 7.324 (7.350-7.450); BG PO2 116.7 mmHg (75.0-100.0); BG SAMPLE SITE RIGHT RADIAL; BG TOTAL HEMOGLOBIN 10.6 g/dL (12.0-18.0); BG VENT MODE NASAL CANNULA
[2021-09-09 22:00] VITALS: BP 128/70
[2021-09-10] VITALS (11 sets, daily range): BP systolic 103–156; BP diastolic 57–103
[2021-09-10] MEDS: ACETYLCYSTEINE 100MG/ML 10% VIAL 4ML INH SCH ×3 (00:24→17:12)
[2021-09-10] MEDS: IPRATROPIUM/ALBUTEROL 0.5-3(2.5)MG/3ML NEB HHN SCH ×6 (00:25→20:24)
[2021-09-10] MEDS: RACEPINEPHRINE 2.25% 0.5ML NEB VIAL HHN PRN ×3 (00:48→14:43)
[2021-09-10] MEDS: MORPHINE SULFATE 4 MG/ML CPJ (NOT FOR IM USE) IV PRN ×3 (04:22→20:13)
[2021-09-10] MEDS: HYDRALAZINE 20MG/ML VIAL IV PRN (04:22)
[2021-09-10] MEDS: METHYLPREDNISOLONE SOD SUCC 125 MG/2 ML VIAL IV SCH ×3 (05:35→21:25)
[2021-09-10] MEDS ORDERED: QUETIAPINE FUMARATE 50MG TABLET PO NR (06:00)
[2021-09-10] MEDS: DILTIAZEM HCL 60MG TABLET PO SCH ×4 (06:06→23:37)
[2021-09-10] MEDS: AMLODIPINE 10MG TABLET PO SCH (08:55)
[2021-09-10] MEDS: QUETIAPINE FUMARATE 50MG TABLET PO SCH ×2 (08:55→21:23)
[2021-09-10] MEDS: ATENOLOL 25MG TABLET PO SCH ×3 (08:56→21:25)
[2021-09-10 13:19] LABS: UCG SCREEN NEGATIVE
[2021-09-10] MEDS: ATORVASTATIN CALCIUM 40MG TABLET PO SCH (21:25)
[2021-09-11] VITALS (10 sets, daily range): BP systolic 106–135; BP diastolic 33–90
[2021-09-11] MEDS: ACETYLCYSTEINE 100MG/ML 10% VIAL 4ML INH SCH ×2 (00:28→09:30)
[2021-09-11] MEDS: IPRATROPIUM/ALBUTEROL 0.5-3(2.5)MG/3ML NEB HHN SCH ×3 (00:37→12:55)
[2021-09-11] MEDS: MORPHINE SULFATE 4 MG/ML CPJ (NOT FOR IM USE) IV PRN ×3 (01:34→13:56)
[2021-09-11] MEDS: RACEPINEPHRINE 2.25% 0.5ML NEB VIAL HHN PRN (04:33)
[2021-09-11] MEDS: DILTIAZEM HCL 60MG TABLET PO SCH ×2 (05:06→11:31)
[2021-09-11] MEDS: METHYLPREDNISOLONE SOD SUCC 125 MG/2 ML VIAL IV SCH ×2 (05:06→13:55)
[2021-09-11] MEDS: QUETIAPINE FUMARATE 50MG TABLET PO SCH (08:00)
[2021-09-11] MEDS: ATENOLOL 25MG TABLET PO SCH (08:00)
[2021-09-11] MEDS ORDERED: ENOXAPARIN 40MG/0.4ML SYR SUBCUT SCH (10:00)
[2021-09-11] MEDS: GABAPENTIN 300MG CAPSULE PO PRN (11:39)
== END 2021-09-11 18:34 | disposition home or self-care (01) | DRG 115 ==
LOC: ER 02:19 → 5EST 04:50
PROVIDERS: ADMIT Internal Medicine; ATTEND Internal Medicine
DX: J38.6 Stenosis of larynx (principal); J96.20 Acute and chronic respiratory failure, unspecified whether with hypoxia or hypercapnia; E44.1 Mild protein-calorie malnutrition; J18.9 Pneumonia, unspecified organism; D64.9 Anemia, unspecified; E87.6 Hypokalemia; I10 Essential (primary) hypertension; J45.909 Unspecified asthma, uncomplicated; F41.1 Generalized anxiety disorder; G89.29 Other chronic pain; G40.909 Epilepsy, unspecified, not intractable, without status epilepticus; F17.210 Nicotine dependence, cigarettes, uncomplicated; Z68.24 Body mass index [BMI] 24.0-24.9, adult; Z91.14 Patient's other noncompliance with medication regimen; Z86.16 Personal history of COVID-19; Z87.01 Personal history of pneumonia (recurrent); Z20.822 Contact with and (suspected) exposure to COVID-19; F99 Mental disorder, not otherwise specified; R00.0 Tachycardia, unspecified
CPT/HCPCS: 36415; 36600; 70490; 71045; 80053; 80305; 80320; 81025; 82375; 82805; 83605; 83880; 84145; 84484; 85025; 87426; 87804; 93005; 94640; 99285; J0360; J0456; J0696; J1650; J2270; J2930; J3475; J7608; G0480

== ENCOUNTER 2021-12-28 17:25 | Inpatient (IN) | payer MEDICAID ==
[2021-12-28] VITALS (10 sets, daily range): BP systolic 112–152; BP diastolic 64–100
[~2021-12-28] VITALS: Ht 172.7 cm; Wt 77.7 kg
[2021-12-28] MEDS ORDERED: LORAZEPAM 2MG/ML CPJ IV ONE (17:45)
[2021-12-28] MEDS ORDERED: DIPHENHYDRAMINE 50MG/ML VIAL IV ONE (17:45)
[2021-12-28] MEDS ORDERED: SODIUM CHLORIDE 0.9% 1,000 ML IV ONE ×2 (17:45→18:00)
[2021-12-28] MEDS ORDERED: PROPOFOL 10MG/ML 100ML 100 ML IV STA (17:55)
[2021-12-28 18:44] LABS: BG BASE EXCESS -14.7 mmol/L (-2.0-2.0); BG CARBOXYHEMOGLOBIN 0.1 % (0.5-1.5); BG DEOXYHEMOGLOBIN 0.2 % (0.0-5.0); BG FRACTION INSPIRED OXYGEN 100; BG HCO3 ACT 13.8 mmol/L (22.0-26.0); BG METHEMOGLOBIN 0.7 % (0.0-1.5); BG OXYGEN SATURATION 99.8 % (92.0-98.5); BG PCO2 42.8 mmHg (35.0-45.0); BG PH 7.125 (7.350-7.450); BG PO2 383.4 mmHg (75.0-100.0); BG SAMPLE SITE LEFT RADIAL; BG TOTAL RESPIRATORY RATE 25 b/min; BG VENT MODE VENT - AC
[2021-12-28] MEDS ORDERED: PROPOFOL 10MG/ML 100ML 100 ML IV SCH (19:00)
[2021-12-28] MEDS ORDERED: MIDAZOLAM 100MG/100ML PMX 100 ML IV PRN (19:00)
[2021-12-28] MEDS ORDERED: MIDAZOLAM HCL 100 MG in SODIUM CHLORIDE 0.9% 100 ML IV PRN (19:15)
[2021-12-28] MEDS ORDERED: FENTANYL CITRATE/PF 2,500 MCG in SODIUM CHLORIDE 0.9% 200 ML IV PRN (20:00)
[2021-12-28] MEDS ORDERED: IPRATROPIUM BROMIDE (0.02%) 0.5MG/2.5ML NEB HHN PRN (20:00)
[2021-12-28] MEDS ORDERED: MIDAZOLAM HCL 100 MG in SODIUM CHLORIDE 0.9% 80 ML IV PRN (20:00)
[2021-12-28 20:31] LABS: CHLORIDE 116 mEq/L (98-107)
[2021-12-28 20:44] LABS: ETHANOL BLOOD 277 mg/dL
[2021-12-28 20:45] LABS: BASOPHILS % 0.3 % (0.0-2.0); EOSINOPHILS % 0.3 % (0.0-5.0); HEMATOCRIT. 27.2 % (36.0-48.0); HEMOGLOBIN. 8.4 g/dL (12.0-16.0); LYMPHOCYTES % 8.4 % (20.0-50.0); MEAN CORPUSCULAR HEMOGLOBIN 22.6 pg (28.0-32.0); MEAN CORPUSCULAR VOLUME 73.5 fL (81.0-99.0); MONOCYTES % 4.7 % (2.0-8.0); NEUTROPHILS % 86.3 % (40.0-76.0); PLATELET 485 x1000/uL (130-400); RED BLOOD CELL COUNT 3.69 mill/uL (4.2-5.4); RED CELL DISTRIBUTION WIDTH 19.5 % (11.6-14.6)
[2021-12-28] MEDS ORDERED: NITROGLYCERIN 0.4MG TABLET SL SL PRN (20:45)
[2021-12-28] MEDS ORDERED: NA PHOS,M-B/NA PHOS,DI-BA ENEMA 118ML PR PRN (20:45)
[2021-12-28] MEDS ORDERED: ACETAMINOPHEN 325MG TABLET PO PRN (20:45)
[2021-12-28] MEDS ORDERED: IPRATROPIUM/ALBUTEROL 0.5-3(2.5)MG/3ML NEB NEB PRN (20:45)
[2021-12-28] MEDS ORDERED: MAGNESIUM/ALUMINUM HYDROXIDE/SIMETHICONE 30ML UDC PO PRN (20:45)
[2021-12-28] MEDS ORDERED: KETOROLAC 15MG/ML VIAL IV PRN (20:45)
[2021-12-28 22:57] LABS: BG BASE EXCESS -5.6 mmol/L (-2.0-2.0); BG CARBOXYHEMOGLOBIN 0.3 % (0.5-1.5); BG DEOXYHEMOGLOBIN 0.4 % (0.0-5.0); BG FRACTION INSPIRED OXYGEN 40; BG HCO3 ACT 18.3 mmol/L (22.0-26.0); BG METHEMOGLOBIN 0.2 % (0.0-1.5); BG OXYGEN SATURATION 99.6 % (92.0-98.5); BG OXYHEMOGLOBIN 99.1 % (94.0-97.0); BG PCO2 29.6 mmHg (35.0-45.0); BG PH 7.409 (7.350-7.450); BG SAMPLE SITE RIGHT BRACHIAL; BG TOTAL HEMOGLOBIN 8.1 g/dL (12.0-18.0); BG VENT MODE VENT - AC
[2021-12-28] MEDS: AMLODIPINE 10MG TABLET PO SCH (22:58)
[2021-12-28] MEDS: METOPROLOL TARTRATE 25MG TABLET PO SCH (22:58)
[2021-12-28] MEDS: DEXT 5%/LACTATED RINGERS 1,000 ML IV SCH (22:59)
[2021-12-29] VITALS (99 sets, daily range): BP systolic 102–189; BP diastolic 60–120
[2021-12-29] MEDS: PROPOFOL 10MG/ML 100ML 100 ML IV PRN ×5 (00:20→17:40)
[2021-12-29] MEDS: IPRATROPIUM/ALBUTEROL 0.5-3(2.5)MG/3ML NEB HHN SCH ×6 (00:20→20:36)
[2021-12-29] MEDS: MIDAZOLAM HCL 100 MG in SODIUM CHLORIDE 0.9% 80 ML IV PRN (00:48)
[2021-12-29] MEDS: FENTANYL CITRATE/PF 2,500 MCG in SODIUM CHLORIDE 0.9% 200 ML IV PRN (01:06)
[2021-12-29 01:09] LABS: *AMPHETAMINES SCREEN URINE NEGATIVE (NEGATIVE); *BARBITURATES SCREEN URINE NEGATIVE (NEGATIVE); *BENZODIAZEPINES SCREEN URINE NEGATIVE (NEGATIVE); *COCAINE SCREEN URINE NEGATIVE (NEGATIVE); METHADONE URINE SCREEN NEGATIVE (NEGATIVE); OPIATES URINE SCREEN NEGATIVE (NEGATIVE); PHENCYCLIDINE URINE SCREEN NEGATIVE (NEGATIVE)
[2021-12-29 01:13] LABS: HDL CHOLESTEROL 59 mg/dL (40-59); LDL CHOLESTEROL 94 mg/dL (5-100); TOTAL IRON BINDING CAPACITY 371 ug/dL (250-450)
[2021-12-29 01:16] LABS: CANNABINOID URINE SCREEN PRESUMTIVE POSITIVE (NEGATIVE)
[2021-12-29 07:03] LABS: BASOPHILS % 0.3 % (0.0-2.0); EOSINOPHILS % 1.2 % (0.0-5.0); HEMATOCRIT. 23.9 % (36.0-48.0); HEMOGLOBIN. 7.5 g/dL (12.0-16.0); LYMPHOCYTES % 17.1 % (20.0-50.0); MEAN CORPUSCULAR HEMOGLOBIN 23.1 pg (28.0-32.0); MEAN CORPUSCULAR VOLUME 73.7 fL (81.0-99.0); MEAN PLATELET VOLUME 7.9 fl (7.4-10.4); MONOCYTES % 4.8 % (2.0-8.0); NEUTROPHILS % 76.6 % (40.0-76.0); PLATELET 395 x1000/uL (130-400); RED BLOOD CELL COUNT 3.25 mill/uL (4.2-5.4); RED CELL DISTRIBUTION WIDTH 19.6 % (11.6-14.6)
[2021-12-29 07:14] LABS: CHLORIDE 118 mEq/L (98-107)
[2021-12-29 07:17] LABS: CREATINE KINASE MB FRACTION 1.2 ng/mL (0.5-3.6)
[2021-12-29 07:27] LABS: PHOSPHORUS 2.8 mg/dL (2.5-4.9)
[2021-12-29 07:51] LABS: FOLIC ACID (FOLATE) SERUM 4.3 ng/mL (>5.38)
[2021-12-29 08:41] LABS: BG BASE EXCESS -4.1 mmol/L (-2.0-2.0); BG CARBOXYHEMOGLOBIN 0.1 % (0.5-1.5); BG DEOXYHEMOGLOBIN 2.8 % (0.0-5.0); BG FRACTION INSPIRED OXYGEN 40; BG HCO3 ACT 19.1 mmol/L (22.0-26.0); BG METHEMOGLOBIN 0.3 % (0.0-1.5); BG OXYGEN SATURATION 97.2 % (92.0-98.5); BG OXYHEMOGLOBIN 96.8 % (94.0-97.0); BG PCO2 27.6 mmHg (35.0-45.0); BG PH 7.458 (7.350-7.450); BG PO2 92.8 mmHg (75.0-100.0); BG SAMPLE SITE RIGHT BRACHIAL; BG TOTAL RESPIRATORY RATE 18 b/min; BG VENT MODE VENT - AC
[2021-12-29] MEDS: ENOXAPARIN 40MG/0.4ML SYR SUBCUT SCH (08:58)
[2021-12-29] MEDS: ASPIRIN 325MG EC TABLET PO SCH (08:59)
[2021-12-29] MEDS: PANTOPRAZOLE SODIUM 40 MG/VIAL IV SCH (08:59)
[2021-12-29] MEDS: AMLODIPINE 10MG TABLET PO SCH (09:00)
[2021-12-29] MEDS: METOPROLOL TARTRATE 25MG TABLET PO SCH ×2 (09:00→20:04)
[2021-12-29] MEDS: DEXT 5%/LACTATED RINGERS 1,000 ML IV SCH ×2 (09:03→23:33)
[2021-12-29] MEDS ORDERED: FOLIC ACID 1MG TABLET PO SCH (12:15)
[2021-12-29] MEDS ORDERED: FOLIC ACID 1 MG in SODIUM CHLORIDE 0.9% 500 ML IV ONE (14:00)
[2021-12-29] MEDS: CLONIDINE 0.1MG TABLET PO PRN (14:35)
[2021-12-29] MEDS: CARVEDILOL 12.5MG TABLET PO SCH ×2 (14:56→20:04)
[2021-12-29] MEDS: ACETAMINOPHEN 325MG TABLET PO PRN (20:03)
[2021-12-29] MEDS ORDERED: PROPOFOL 10MG/ML 100ML 100 ML IV PRN (23:00)
[2021-12-30] VITALS (97 sets, daily range): BP systolic 93–170; BP diastolic 26–129
[2021-12-30] MEDS: IPRATROPIUM/ALBUTEROL 0.5-3(2.5)MG/3ML NEB HHN SCH ×7 (00:59→23:58)
[2021-12-30] MEDS: FENTANYL CITRATE/PF 2,500 MCG in SODIUM CHLORIDE 0.9% 200 ML IV PRN ×2 (02:09→15:16)
[2021-12-30] MEDS: MIDAZOLAM HCL 100 MG in SODIUM CHLORIDE 0.9% 80 ML IV PRN (03:06)
[2021-12-30] MEDS: ONDANSETRON HCL 4MG/2ML INJ IV PRN (04:50)
[2021-12-30] MEDS: ENOXAPARIN 40MG/0.4ML SYR SUBCUT SCH (09:00)
[2021-12-30] MEDS: PANTOPRAZOLE SODIUM 40 MG/VIAL IV SCH (09:13)
[2021-12-30] MEDS: ASPIRIN 325MG EC TABLET PO SCH (09:14)
[2021-12-30] MEDS: FOLIC ACID 1MG TABLET PO SCH (09:14)
[2021-12-30] MEDS: CARVEDILOL 12.5MG TABLET PO SCH ×2 (09:14→21:39)
[2021-12-30] MEDS: METOPROLOL TARTRATE 25MG TABLET PO SCH ×2 (09:14→21:38)
[2021-12-30] MEDS: AMLODIPINE 5MG TABLET PO SCH (09:14)
[2021-12-30 11:08] LABS: BG BASE EXCESS -2.4 mmol/L (-2.0-2.0); BG CARBOXYHEMOGLOBIN 0.3 % (0.5-1.5); BG DEOXYHEMOGLOBIN 1.8 % (0.0-5.0); BG FRACTION INSPIRED OXYGEN 40; BG HCO3 ACT 21.8 mmol/L (22.0-26.0); BG METHEMOGLOBIN 0.6 % (0.0-1.5); BG OXYGEN SATURATION 98.2 % (92.0-98.5); BG OXYHEMOGLOBIN 97.3 % (94.0-97.0); BG PCO2 34.9 mmHg (35.0-45.0); BG PH 7.414 (7.350-7.450); BG PO2 121.9 mmHg (75.0-100.0); BG SAMPLE SITE LEFT BRACHIAL; BG TOTAL HEMOGLOBIN 7.5 g/dL (12.0-18.0); BG TOTAL RESPIRATORY RATE 12 b/min; BG VENT MODE VENT - AC
[2021-12-30] MEDS: PROPOFOL 10MG/ML 100ML 100 ML IV PRN ×2 (11:13→15:16)
[2021-12-30] MEDS: DEXT 5%/LACTATED RINGERS 1,000 ML IV SCH (13:25)
[2021-12-31] VITALS (97 sets, daily range): BP systolic 92–157; BP diastolic 49–106
[2021-12-31] MEDS: DEXT 5%/LACTATED RINGERS 1,000 ML IV SCH ×2 (01:10→04:43)
[2021-12-31] MEDS: IPRATROPIUM/ALBUTEROL 0.5-3(2.5)MG/3ML NEB HHN SCH ×5 (04:18→20:32)
[2021-12-31] MEDS: PROPOFOL 10MG/ML 100ML 100 ML IV PRN ×5 (04:27→22:10)
[2021-12-31] MEDS: FENTANYL CITRATE/PF 2,500 MCG in SODIUM CHLORIDE 0.9% 200 ML IV PRN ×2 (04:44→15:53)
[2021-12-31] MEDS: CARVEDILOL 12.5MG TABLET PO SCH ×2 (09:02→20:53)
[2021-12-31] MEDS: FOLIC ACID 1MG TABLET PO SCH (09:02)
[2021-12-31] MEDS: PANTOPRAZOLE SODIUM 40 MG/VIAL IV SCH (09:02)
[2021-12-31] MEDS: METOPROLOL TARTRATE 25MG TABLET PO SCH ×2 (09:03→20:53)
[2021-12-31] MEDS: ASPIRIN 325MG EC TABLET PO SCH (09:03)
[2021-12-31] MEDS: AMLODIPINE 5MG TABLET PO SCH (09:03)
[2021-12-31] MEDS: ENOXAPARIN 40MG/0.4ML SYR SUBCUT SCH (09:03)
[2021-12-31 11:31] LABS: BG BASE EXCESS -2.1 mmol/L (-2.0-2.0); BG CARBOXYHEMOGLOBIN 0.3 % (0.5-1.5); BG DEOXYHEMOGLOBIN 1.3 % (0.0-5.0); BG FRACTION INSPIRED OXYGEN 40; BG HCO3 ACT 22.1 mmol/L (22.0-26.0); BG METHEMOGLOBIN 0.3 % (0.0-1.5); BG OXYGEN SATURATION 98.7 % (92.0-98.5); BG OXYHEMOGLOBIN 98.1 % (94.0-97.0); BG PH 7.418 (7.350-7.450); BG SAMPLE SITE RIGHT RADIAL; BG TOTAL HEMOGLOBIN 7.3 g/dL (12.0-18.0); BG VENT MODE VENT - AC
[2021-12-31] MEDS: QUETIAPINE FUMARATE 25MG TABLET PO SCH (20:53)
[2022-01-01] VITALS (95 sets, daily range): BP systolic 107–190; BP diastolic 62–120
[2022-01-01] MEDS: IPRATROPIUM/ALBUTEROL 0.5-3(2.5)MG/3ML NEB HHN SCH ×6 (00:50→23:59)
[2022-01-01] MEDS: PROPOFOL 10MG/ML 100ML 100 ML IV PRN ×2 (03:22→06:56)
[2022-01-01] MEDS: DEXT 5%/LACTATED RINGERS 1,000 ML IV SCH ×2 (04:59→17:46)
[2022-01-01] MEDS: FENTANYL CITRATE/PF 2,500 MCG in SODIUM CHLORIDE 0.9% 200 ML IV PRN ×2 (04:59→17:46)
[2022-01-01] MEDS: ENOXAPARIN 40MG/0.4ML SYR SUBCUT SCH (09:10)
[2022-01-01] MEDS: PANTOPRAZOLE SODIUM 40 MG/VIAL IV SCH (09:10)
[2022-01-01] MEDS: ASPIRIN 325MG EC TABLET PO SCH (09:10)
[2022-01-01] MEDS: QUETIAPINE FUMARATE 25MG TABLET PO SCH ×2 (09:11→20:08)
[2022-01-01] MEDS: AMLODIPINE 5MG TABLET PO SCH (09:11)
[2022-01-01] MEDS: FOLIC ACID 1MG TABLET PO SCH (09:11)
[2022-01-01] MEDS: METOPROLOL TARTRATE 25MG TABLET PO SCH ×2 (09:11→20:05)
[2022-01-01] MEDS: CARVEDILOL 12.5MG TABLET PO SCH ×2 (09:12→20:06)
[2022-01-01] MEDS ORDERED: MIDAZOLAM 100MG/100ML PMX 100 ML IV PRN (11:00)
[2022-01-01] MEDS ORDERED: MIDAZOLAM HCL 100 MG in SODIUM CHLORIDE 0.9% 100 ML IV PRN (11:00)
[2022-01-01] MEDS: MIDAZOLAM HCL 100 MG in SODIUM CHLORIDE 0.9% 80 ML IV PRN (11:19)
[2022-01-01] MEDS: CEFEPIME 1,000 MG in DEXTROSE 5% WATER 50 ML IV SCH ×2 (12:15→22:16)
[2022-01-01] MEDS: ACETAMINOPHEN 325MG TABLET PO PRN (20:05)
[2022-01-02] VITALS (80 sets, daily range): BP systolic 113–168; BP diastolic 68–106
[2022-01-02] MEDS: IPRATROPIUM/ALBUTEROL 0.5-3(2.5)MG/3ML NEB HHN SCH ×5 (04:04→20:34)
[2022-01-02] MEDS: DEXT 5%/LACTATED RINGERS 1,000 ML IV SCH ×2 (06:15→19:58)
[2022-01-02] MEDS: FENTANYL CITRATE/PF 2,500 MCG in SODIUM CHLORIDE 0.9% 200 ML IV PRN ×2 (06:23→20:33)
[2022-01-02] MEDS: ONDANSETRON HCL 4MG/2ML INJ IV PRN (06:27)
[2022-01-02 08:21] LABS: BG BASE EXCESS -0.2 mmol/L (-2.0-2.0); BG CARBOXYHEMOGLOBIN 0.6 % (0.5-1.5); BG DEOXYHEMOGLOBIN 3.1 % (0.0-5.0); BG FRACTION INSPIRED OXYGEN 30; BG HCO3 ACT 24.7 mmol/L (22.0-26.0); BG OXYGEN SATURATION 96.9 % (92.0-98.5); BG OXYHEMOGLOBIN 96.3 % (94.0-97.0); BG PH 7.388 (7.350-7.450); BG PO2 86.3 mmHg (75.0-100.0); BG SAMPLE SITE LEFT RADIAL; BG TOTAL HEMOGLOBIN 7.3 g/dL (12.0-18.0); BG TOTAL RESPIRATORY RATE 13 b/min; BG VENT MODE VENT - AC
[2022-01-02] MEDS: FOLIC ACID 1MG TABLET PO SCH (09:00)
[2022-01-02] MEDS: ASPIRIN 325MG EC TABLET PO SCH (09:00)
[2022-01-02] MEDS: PANTOPRAZOLE SODIUM 40 MG/VIAL IV SCH (09:00)
[2022-01-02] MEDS: CEFEPIME 1,000 MG in DEXTROSE 5% WATER 50 ML IV SCH ×2 (09:00→20:34)
[2022-01-02] MEDS: QUETIAPINE FUMARATE 25MG TABLET PO SCH ×2 (09:00→20:34)
[2022-01-02] MEDS: METOPROLOL TARTRATE 25MG TABLET PO SCH ×2 (09:00→20:34)
[2022-01-02] MEDS: CARVEDILOL 12.5MG TABLET PO SCH ×2 (09:00→20:34)
[2022-01-02] MEDS: AMLODIPINE 5MG TABLET PO SCH (09:00)
[2022-01-02] MEDS: ENOXAPARIN 40MG/0.4ML SYR SUBCUT SCH (09:01)
[2022-01-02 09:58] LABS: HEMATOCRIT. 23.2 % (36.0-48.0); HEMOGLOBIN. 7.1 g/dL (12.0-16.0); MEAN CORPUSCULAR HEMOGLOBIN 22.6 pg (28.0-32.0); MEAN CORPUSCULAR VOLUME 73.6 fL (81.0-99.0); MEAN PLATELET VOLUME 7.5 fl (7.4-10.4); PLATELET 281 x1000/uL (130-400); RED BLOOD CELL COUNT 3.15 mill/uL (4.2-5.4); RED CELL DISTRIBUTION WIDTH 20.1 % (11.6-14.6)
[2022-01-02 09:59] LABS: CHLORIDE 109 mEq/L (98-107)
[2022-01-02 10:40] LABS: PLATELET ESTIMATE NORMAL
[2022-01-02] MEDS: KCL 20MEQ/100ML PREMIX 100 ML IV SCH ×2 (12:36→14:48)
[2022-01-02] MEDS: MIDAZOLAM HCL 100 MG in SODIUM CHLORIDE 0.9% 80 ML IV PRN (20:33)
[2022-01-02] MEDS: CLONIDINE 0.1MG TABLET PO PRN (23:19)
[2022-01-03] VITALS (73 sets, daily range): BP systolic 111–182; BP diastolic 60–108
[2022-01-03] MEDS: IPRATROPIUM/ALBUTEROL 0.5-3(2.5)MG/3ML NEB HHN SCH ×6 (00:20→20:55)
[2022-01-03] MEDS ORDERED: FENTANYL 2500MCG/250ML PMX 250 ML IV ONE (03:15)
[2022-01-03] MEDS ORDERED: FENTANYL CITRATE 2,500 MCG in SODIUM CHLORIDE 0.9% 200 ML IV PRN (03:30)
[2022-01-03] MEDS: HYDRALAZINE 20MG/ML VIAL IV PRN (03:31)
[2022-01-03 05:10] LABS: HEMATOCRIT. 24.1 % (36.0-48.0); HEMOGLOBIN. 7.7 g/dL (12.0-16.0); MEAN CORPUSCULAR HEMOGLOBIN 22.6 pg (28.0-32.0); MEAN CORPUSCULAR VOLUME 70.7 fL (81.0-99.0); MEAN PLATELET VOLUME 7.3 fl (7.4-10.4); PLATELET 333 x1000/uL (130-400); RED BLOOD CELL COUNT 3.41 mill/uL (4.2-5.4); RED CELL DISTRIBUTION WIDTH 19.4 % (11.6-14.6)
[2022-01-03 05:19] LABS: CHLORIDE 108 mEq/L (98-107)
[2022-01-03] MEDS ORDERED: LIDOCAINE HCL/PF 1% 10 MG/ML 5ML VIAL ONE (07:49)
[2022-01-03 08:13] LABS: BG CARBOXYHEMOGLOBIN 0.3 % (0.5-1.5); BG DEOXYHEMOGLOBIN 1.6 % (0.0-5.0); BG FRACTION INSPIRED OXYGEN 30; BG HCO3 ACT 23.7 mmol/L (22.0-26.0); BG METHEMOGLOBIN 0.1 % (0.0-1.5); BG OXYGEN SATURATION 98.4 % (92.0-98.5); BG PCO2 34.3 mmHg (35.0-45.0); BG PH 7.457 (7.350-7.450); BG PO2 111.6 mmHg (75.0-100.0); BG SAMPLE SITE LEFT RADIAL; BG TOTAL HEMOGLOBIN 8.3 g/dL (12.0-18.0); BG TOTAL RESPIRATORY RATE 12 b/min; BG VENT MODE VENT - AC
[2022-01-03] MEDS: CARVEDILOL 12.5MG TABLET PO SCH ×2 (09:03→21:10)
[2022-01-03] MEDS: ENOXAPARIN 40MG/0.4ML SYR SUBCUT SCH (09:03)
[2022-01-03] MEDS: ASPIRIN 325MG EC TABLET PO SCH (09:04)
[2022-01-03] MEDS: AMLODIPINE 5MG TABLET PO SCH (09:04)
[2022-01-03] MEDS: METOPROLOL TARTRATE 25MG TABLET PO SCH ×2 (09:04→21:09)
[2022-01-03] MEDS: FOLIC ACID 1MG TABLET PO SCH (09:04)
[2022-01-03] MEDS: PANTOPRAZOLE SODIUM 40 MG/VIAL IV SCH (09:04)
[2022-01-03] MEDS: CEFEPIME 1,000 MG in DEXTROSE 5% WATER 50 ML IV SCH ×2 (09:04→21:09)
[2022-01-03] MEDS: QUETIAPINE FUMARATE 25MG TABLET PO SCH ×2 (09:04→21:09)
[2022-01-03] MEDS: DEXT 5%/LACTATED RINGERS 1,000 ML IV SCH ×2 (09:06→23:05)
[2022-01-03] MEDS ORDERED: POTASSIUM CHLORIDE 20MEQ/PACKET PO NR (09:15)
[2022-01-03] MEDS: MIDAZOLAM HCL 100 MG in SODIUM CHLORIDE 0.9% 80 ML IV PRN (12:01)
[2022-01-03 13:44] LABS: PLATELET ESTIMATE NORMAL
[2022-01-03] MEDS: FENTANYL CITRATE/PF 2,500 MCG in SODIUM CHLORIDE 0.9% 200 ML IV PRN (21:51)
[2022-01-04] VITALS (65 sets, daily range): BP systolic 116–165; BP diastolic 43–99
[2022-01-04] MEDS: IPRATROPIUM/ALBUTEROL 0.5-3(2.5)MG/3ML NEB HHN SCH ×7 (00:19→23:57)
[2022-01-04] MEDS: MIDAZOLAM HCL 100 MG in SODIUM CHLORIDE 0.9% 80 ML IV PRN ×2 (01:13→13:18)
[2022-01-04] MEDS: HYDRALAZINE 20MG/ML VIAL IV PRN (01:45)
[2022-01-04] MEDS: QUETIAPINE FUMARATE 25MG TABLET PO SCH ×2 (08:55→21:08)
[2022-01-04] MEDS: FOLIC ACID 1MG TABLET PO SCH (08:55)
[2022-01-04] MEDS: CARVEDILOL 12.5MG TABLET PO SCH ×2 (08:57→21:09)
[2022-01-04] MEDS: METOPROLOL TARTRATE 25MG TABLET PO SCH ×2 (08:57→21:08)
[2022-01-04] MEDS: AMLODIPINE 5MG TABLET PO SCH (08:58)
[2022-01-04] MEDS: PANTOPRAZOLE SODIUM 40 MG/VIAL IV SCH (08:58)
[2022-01-04] MEDS: CEFEPIME 1,000 MG in DEXTROSE 5% WATER 50 ML IV SCH ×2 (08:58→21:08)
[2022-01-04] MEDS: ENOXAPARIN 40MG/0.4ML SYR SUBCUT SCH (08:59)
[2022-01-04] MEDS: ASPIRIN 325MG EC TABLET PO SCH (09:00)
[2022-01-04 09:17] LABS: BG BASE EXCESS -1.6 mmol/L (-2.0-2.0); BG CARBOXYHEMOGLOBIN 1.2 % (0.5-1.5); BG DEOXYHEMOGLOBIN 0.4 % (0.0-5.0); BG FRACTION INSPIRED OXYGEN 30; BG HCO3 ACT 22.3 mmol/L (22.0-26.0); BG METHEMOGLOBIN 0.4 % (0.0-1.5); BG OXYGEN SATURATION 99.6 % (92.0-98.5); BG PCO2 33.8 mmHg (35.0-45.0); BG PH 7.437 (7.350-7.450); BG SAMPLE SITE RIGHT RADIAL; BG TOTAL HEMOGLOBIN 7.7 g/dL (12.0-18.0); BG VENT MODE VENT - AC
[2022-01-04 12:21] LABS: HEMATOCRIT. 22.8 % (36.0-48.0); MEAN CORPUSCULAR VOLUME 71.2 fL (81.0-99.0)
[2022-01-04 12:22] LABS: MEAN PLATELET VOLUME 7.2 fl (7.4-10.4); PLATELET 327 x1000/uL (130-400); RED CELL DISTRIBUTION WIDTH 19.4 % (11.6-14.6)
[2022-01-04 12:31] LABS: PARTIAL THROMBOPLASTIN TIME 36.2 sec (23.4-31.0); PROTHROMBIN TIME 10.6 sec (9.6-11.0)
[2022-01-04 13:04] LABS: PLATELET ESTIMATE NORMAL
[2022-01-04] MEDS: DEXT 5%/LACTATED RINGERS 1,000 ML IV SCH (13:16)
[2022-01-04] MEDS: FENTANYL CITRATE/PF 2,500 MCG in SODIUM CHLORIDE 0.9% 200 ML IV PRN (13:17)
[2022-01-04 13:54] LABS: CHLORIDE 106 mEq/L (98-107)
[2022-01-04] MEDS ORDERED: KCL 20MEQ/100ML PREMIX 100 ML IV NR (16:00)
[2022-01-05] VITALS (47 sets, daily range): BP systolic 101–189; BP diastolic 32–122
[2022-01-05] MEDS: MIDAZOLAM HCL 100 MG in SODIUM CHLORIDE 0.9% 80 ML IV PRN ×2 (02:00→18:24)
[2022-01-05] MEDS: FENTANYL CITRATE/PF 2,500 MCG in SODIUM CHLORIDE 0.9% 200 ML IV PRN ×2 (02:00→18:24)
[2022-01-05] MEDS: DEXT 5%/LACTATED RINGERS 1,000 ML IV SCH ×2 (02:00→15:39)
[2022-01-05] MEDS: CLONIDINE 0.1MG TABLET PO PRN (02:59)
[2022-01-05] MEDS: IPRATROPIUM/ALBUTEROL 0.5-3(2.5)MG/3ML NEB HHN SCH ×5 (04:21→20:20)
[2022-01-05] MEDS: ASPIRIN 325MG TABLET PO SCH (08:35)
[2022-01-05] MEDS: CEFEPIME 1,000 MG in DEXTROSE 5% WATER 50 ML IV SCH ×2 (08:35→21:01)
[2022-01-05] MEDS: PANTOPRAZOLE SODIUM 40 MG/VIAL IV SCH (08:35)
[2022-01-05] MEDS: FOLIC ACID 1MG TABLET PO SCH (08:35)
[2022-01-05] MEDS: CARVEDILOL 12.5MG TABLET PO SCH ×2 (08:36→21:01)
[2022-01-05] MEDS: AMLODIPINE 5MG TABLET PO SCH (08:36)
[2022-01-05] MEDS: QUETIAPINE FUMARATE 25MG TABLET PO SCH ×2 (08:36→21:38)
[2022-01-05] MEDS: METOPROLOL TARTRATE 25MG TABLET PO SCH ×2 (08:36→21:01)
[2022-01-05 10:36] LABS: HEMOGLOBIN. 9.8 g/dL (12.0-16.0); MEAN CORPUSCULAR HEMOGLOBIN 24.4 pg (28.0-32.0); MEAN CORPUSCULAR VOLUME 74.7 fL (81.0-99.0); PLATELET 309 x1000/uL (130-400); RED BLOOD CELL COUNT 4.02 mill/uL (4.2-5.4); RED CELL DISTRIBUTION WIDTH 21.2 % (11.6-14.6)
[2022-01-05] MEDS ORDERED: ROCURONIUM BROMIDE 10MG/ML VIAL 5ML IV ONE (10:59)
[2022-01-05] MEDS ORDERED: FENTANYL CITRATE/PF 50MCG/ML 2ML VIAL ONE ×2 (11:00→11:56)
[2022-01-05] MEDS ORDERED: MIDAZOLAM HCL 2 MG/2 ML VIAL ONE (11:01)
[2022-01-05 11:16] LABS: CHLORIDE 109 mEq/L (98-107)
[2022-01-05] MEDS ORDERED: PROPOFOL 200MG/20ML VIAL IV ONE (11:18)
[2022-01-05] MEDS ORDERED: SUCCINYLCHOLINE CHLORIDE 200MG/10ML IV ONE (11:18)
[2022-01-05] MEDS ORDERED: ESMOLOL HCL 10MG/ML 10ML VIAL IV ONE (11:59)
[2022-01-05] MEDS ORDERED: LACTULOSE 20G/30ML UDC PO PRN (14:30)
[2022-01-05] MEDS: HYDRALAZINE 20MG/ML VIAL IV PRN (17:15)
[2022-01-05 20:08] LABS: PLATELET ESTIMATE NORMAL
[2022-01-06] VITALS (74 sets, daily range): BP systolic 79–187; BP diastolic 36–134
[2022-01-06] MEDS: IPRATROPIUM/ALBUTEROL 0.5-3(2.5)MG/3ML NEB HHN SCH ×6 (00:30→20:08)
[2022-01-06] MEDS: DEXT 5%/LACTATED RINGERS 1,000 ML IV SCH ×2 (03:13→18:43)
[2022-01-06] MEDS: MIDAZOLAM HCL 100 MG in SODIUM CHLORIDE 0.9% 80 ML IV PRN (03:46)
[2022-01-06] MEDS: FENTANYL CITRATE/PF 2,500 MCG in SODIUM CHLORIDE 0.9% 200 ML IV PRN (05:33)
[2022-01-06] MEDS: METOPROLOL TARTRATE 25MG TABLET PO SCH ×2 (08:50→20:22)
[2022-01-06] MEDS: PANTOPRAZOLE SODIUM 40 MG/VIAL IV SCH (08:50)
[2022-01-06] MEDS: DOCUSATE SODIUM 100MG CAPSULE PO PRN (08:50)
[2022-01-06] MEDS: CEFEPIME 1,000 MG in DEXTROSE 5% WATER 50 ML IV SCH ×2 (08:50→20:18)
[2022-01-06] MEDS: CARVEDILOL 12.5MG TABLET PO SCH ×2 (08:50→22:26)
[2022-01-06] MEDS: QUETIAPINE FUMARATE 25MG TABLET PO SCH ×2 (08:51→22:18)
[2022-01-06] MEDS: ASPIRIN 325MG TABLET PO SCH (08:51)
[2022-01-06] MEDS: AMLODIPINE 5MG TABLET PO SCH (08:51)
[2022-01-06] MEDS: FOLIC ACID 1MG TABLET PO SCH (08:52)
[2022-01-06] MEDS ORDERED: NALOXONE HCL 0.4MG/ML VIAL IV PRN (12:45)
[2022-01-06] MEDS ORDERED: LORAZEPAM 2MG/ML CPJ IV PRN (12:45)
[2022-01-06] MEDS ORDERED: MORPHINE SULFATE 2 MG/ML CPJ (NOT FOR IM USE) IV PRN (12:45)
[2022-01-06] MEDS: MORPHINE SULFATE 2 MG/ML CPJ (NOT FOR IM USE) IV PRN ×2 (19:01→22:11)
[2022-01-06] MEDS: HALOPERIDOL LACTATE 5MG/ML VIAL IM PRN (20:18)
[2022-01-06] MEDS: LORAZEPAM 2MG/ML CPJ IV PRN (20:18)
[2022-01-06] MEDS: ACETAMINOPHEN 325MG TABLET PO PRN (20:42)
[2022-01-06] MEDS: CLONIDINE 0.1MG TABLET PO PRN (22:12)
[2022-01-07] VITALS (79 sets, daily range): BP systolic 111–192; BP diastolic 70–150
[2022-01-07] MEDS: IPRATROPIUM/ALBUTEROL 0.5-3(2.5)MG/3ML NEB HHN SCH ×6 (00:15→21:46)
[2022-01-07] MEDS ORDERED: LORAZEPAM 2MG/ML CPJ IV NR (01:00)
[2022-01-07] MEDS: MORPHINE SULFATE 2 MG/ML CPJ (NOT FOR IM USE) IV PRN ×4 (03:39→15:46)
[2022-01-07] MEDS: CLONIDINE 0.1MG TABLET PO PRN ×2 (03:44→08:11)
[2022-01-07] MEDS: DEXT 5%/LACTATED RINGERS 1,000 ML IV SCH ×2 (07:44→21:13)
[2022-01-07] MEDS: HYDRALAZINE 20MG/ML VIAL IV PRN (07:44)
[2022-01-07] MEDS: METOPROLOL TARTRATE 25MG TABLET PO SCH ×2 (08:10→21:13)
[2022-01-07] MEDS: QUETIAPINE FUMARATE 25MG TABLET PO SCH ×2 (08:10→21:13)
[2022-01-07] MEDS: PANTOPRAZOLE SODIUM 40 MG/VIAL IV SCH (08:10)
[2022-01-07] MEDS: ASPIRIN 325MG TABLET PO SCH (08:10)
[2022-01-07] MEDS: CARVEDILOL 12.5MG TABLET PO SCH ×2 (08:11→21:12)
[2022-01-07] MEDS: AMLODIPINE 5MG TABLET PO SCH (08:11)
[2022-01-07] MEDS: FOLIC ACID 1MG TABLET PO SCH (08:11)
[2022-01-07 13:32] LABS: BG CARBOXYHEMOGLOBIN 0.3 % (0.5-1.5); BG DEOXYHEMOGLOBIN 1.6 % (0.0-5.0); BG FRACTION INSPIRED OXYGEN 30; BG HCO3 ACT 24.2 mmol/L (22.0-26.0); BG METHEMOGLOBIN 0.3 % (0.0-1.5); BG OXYGEN SATURATION 98.4 % (92.0-98.5); BG OXYHEMOGLOBIN 97.8 % (94.0-97.0); BG PCO2 33.9 mmHg (35.0-45.0); BG PH 7.472 (7.350-7.450); BG PO2 132.6 mmHg (75.0-100.0); BG SAMPLE SITE RIGHT BRACHIAL; BG TOTAL HEMOGLOBIN 11.9 g/dL (12.0-18.0); BG VENT MODE VENT - CPAP
[2022-01-07] MEDS: LORAZEPAM 2MG/ML CPJ IV PRN (14:51)
[2022-01-07] MEDS: HALOPERIDOL LACTATE 5MG/ML VIAL IM PRN (16:12)
[2022-01-08] VITALS (31 sets, daily range): BP systolic 131–176; BP diastolic 58–104
[2022-01-08] MEDS: IPRATROPIUM/ALBUTEROL 0.5-3(2.5)MG/3ML NEB HHN SCH ×6 (00:15→21:09)
[2022-01-08] MEDS: MORPHINE SULFATE 2 MG/ML CPJ (NOT FOR IM USE) IV PRN ×4 (02:37→20:43)
[2022-01-08] MEDS: LORAZEPAM 2MG/ML CPJ IV PRN ×2 (05:11→18:07)
[2022-01-08] MEDS: ASPIRIN 325MG TABLET PO SCH (08:25)
[2022-01-08] MEDS: HALOPERIDOL LACTATE 5MG/ML VIAL IM PRN (08:25)
[2022-01-08] MEDS: PANTOPRAZOLE SODIUM 40 MG/VIAL IV SCH (08:25)
[2022-01-08] MEDS: QUETIAPINE FUMARATE 25MG TABLET PO SCH ×2 (08:26→20:42)
[2022-01-08] MEDS: CARVEDILOL 12.5MG TABLET PO SCH ×2 (08:26→20:42)
[2022-01-08] MEDS: FOLIC ACID 1MG TABLET PO SCH (08:26)
[2022-01-08] MEDS: DOCUSATE SODIUM 100MG CAPSULE PO PRN (08:26)
[2022-01-08] MEDS: AMLODIPINE 5MG TABLET PO SCH (08:26)
[2022-01-08] MEDS: CLONIDINE 0.1MG TABLET PO PRN (08:26)
[2022-01-08] MEDS: METOPROLOL TARTRATE 25MG TABLET PO SCH ×2 (08:27→20:43)
[2022-01-08] MEDS: DEXT 5%/LACTATED RINGERS 1,000 ML IV SCH ×2 (09:39→23:09)
[2022-01-08] MEDS: HYDRALAZINE 20MG/ML VIAL IV PRN (15:55)
[2022-01-09] VITALS (11 sets, daily range): BP systolic 130–179; BP diastolic 83–102
[2022-01-09] MEDS: IPRATROPIUM/ALBUTEROL 0.5-3(2.5)MG/3ML NEB HHN SCH ×6 (00:45→20:13)
[2022-01-09] MEDS: HYDRALAZINE 20MG/ML VIAL IV PRN ×2 (02:15→22:38)
[2022-01-09] MEDS: MORPHINE SULFATE 2 MG/ML CPJ (NOT FOR IM USE) IV PRN ×8 (02:15→23:52)
[2022-01-09] MEDS: LORAZEPAM 2MG/ML CPJ IV PRN ×4 (03:09→23:51)
[2022-01-09] MEDS: QUETIAPINE FUMARATE 25MG TABLET PO SCH ×2 (08:08→20:23)
[2022-01-09] MEDS: PANTOPRAZOLE SODIUM 40 MG/VIAL IV SCH (08:08)
[2022-01-09] MEDS: ASPIRIN 325MG TABLET PO SCH (08:09)
[2022-01-09] MEDS: METOPROLOL TARTRATE 25MG TABLET PO SCH ×2 (08:09→20:29)
[2022-01-09] MEDS: FOLIC ACID 1MG TABLET PO SCH (08:09)
[2022-01-09] MEDS: AMLODIPINE 5MG TABLET PO SCH (08:09)
[2022-01-09] MEDS: CARVEDILOL 12.5MG TABLET PO SCH ×2 (08:09→20:28)
[2022-01-09] MEDS: DEXT 5%/LACTATED RINGERS 1,000 ML IV SCH (12:25)
[2022-01-10] VITALS: BP 148/68
[2022-01-10] MEDS: IPRATROPIUM/ALBUTEROL 0.5-3(2.5)MG/3ML NEB HHN SCH ×4 (00:04→15:36)
[2022-01-10] MEDS: DEXT 5%/LACTATED RINGERS 1,000 ML IV SCH ×2 (01:27→06:27)
[2022-01-10 06:00] VITALS: BP 147/87
[2022-01-10] MEDS: HYDRALAZINE 20MG/ML VIAL IV PRN (06:27)
[2022-01-10] MEDS: PANTOPRAZOLE SODIUM 40 MG/VIAL IV SCH (08:24)
[2022-01-10] MEDS: ASPIRIN 325MG TABLET PO SCH (08:24)
[2022-01-10] MEDS: FOLIC ACID 1MG TABLET PO SCH (08:24)
[2022-01-10] MEDS: MORPHINE SULFATE 2 MG/ML CPJ (NOT FOR IM USE) IV PRN ×2 (08:25→11:01)
[2022-01-10] MEDS: METOPROLOL TARTRATE 25MG TABLET PO SCH (08:25)
[2022-01-10] MEDS: AMLODIPINE 5MG TABLET PO SCH (08:26)
[2022-01-10] MEDS: CARVEDILOL 12.5MG TABLET PO SCH (08:26)
[2022-01-10] MEDS: QUETIAPINE FUMARATE 25MG TABLET PO SCH (09:00)
[2022-01-10] MEDS: LORAZEPAM 2MG/ML CPJ IV PRN (11:02)
== END 2022-01-10 18:44 | disposition left against medical advice (07) | DRG 130 ==
LOC: ER 17:32 → CVICU 19:43 → EDBEDREQ 19:59 → EDBEDREQTM 19:59 → 5EST 01-08 13:45
PROVIDERS: ADMIT Internal Medicine; ATTEND Internal Medicine
PROC: 5A1955Z Respiratory Ventilation, Greater than 96 Consecutive Hours (ICD-10-PCS; principal; 2021-12-28)
PROC: 0BH17EZ Insertion of Endotracheal Airway into Trachea, Via Natural or Artificial Opening (ICD-10-PCS; 2021-12-28)
PROC: 05HY33Z Insertion of Infusion Device into Upper Vein, Percutaneous Approach (ICD-10-PCS; 2022-01-03)
PROC: 30233N1 Transfusion of Nonautologous Red Blood Cells into Peripheral Vein, Percutaneous Approach (ICD-10-PCS; 2022-01-04)
PROC: 0BW1XFZ Revision of Tracheostomy Device in Trachea, External Approach (ICD-10-PCS; 2022-01-05)
PROC: 0B21XFZ Change Tracheostomy Device in Trachea, External Approach (ICD-10-PCS; 2022-01-05)
DX: J96.21 Acute and chronic respiratory failure with hypoxia (principal); E44.1 Mild protein-calorie malnutrition; J39.8 Other specified diseases of upper respiratory tract; D50.9 Iron deficiency anemia, unspecified; F10.10 Alcohol abuse, uncomplicated; F12.90 Cannabis use, unspecified, uncomplicated; F19.10 Other psychoactive substance abuse, uncomplicated; K12.2 Cellulitis and abscess of mouth; I10 Essential (primary) hypertension; Z53.29 Procedure and treatment not carried out because of patient's decision for other reasons; Z78.1 Physical restraint status; Z68.26 Body mass index [BMI] 26.0-26.9, adult; Z79.899 Other long term (current) drug therapy; Z82.49 Family history of ischemic heart disease and other diseases of the circulatory system; Z87.01 Personal history of pneumonia (recurrent); Y90.8 Blood alcohol level of 240 mg/100 ml or more
CPT/HCPCS: 31500; 36415; 36573; 36600; 71045; 80048; 80053; 80061; 80305; 80320; 82375; 82550; 82553; 82607; 82746; 82805; 82962; 83036; 83540; 83550; 83735; 83880; 84100; 84145; 84439; 84443; 84478; 84484; 85025; 86850; 86900; 86920; 87070; 87426; 92523; 92610; 93970; 94002; 94003; 94640; 99285; C1725; C1893; C9113; J0330; J0360; J0692; J1200; J1630; J1650; J1885; J2060; J2250; J2270; J2405; J2704; J3010; J3480; J3490; J7030; J7040; J7050; J7060; P9016; G0480

== ENCOUNTER 2022-01-21 10:30 | Inpatient (IN) | payer MEDICAID ==
[~2022-01-21] VITALS: Ht 165.1 cm; Wt 73.0 kg
[2022-01-21] MEDS ORDERED: KETOROLAC 30MG/ML VIAL IV STA (11:23)
[2022-01-21 11:51] LABS: BASOPHILS % 0.6 % (0.0-2.0); EOSINOPHILS % 0.2 % (0.0-5.0); HEMATOCRIT. 38.2 % (36.0-48.0); HEMOGLOBIN. 12.4 g/dL (12.0-16.0); LYMPHOCYTES % 14.6 % (20.0-50.0); MEAN CORPUSCULAR HEMOGLOBIN 23.8 pg (28.0-32.0); MEAN PLATELET VOLUME 8.3 fl (7.4-10.4); MONOCYTES % 10.3 % (2.0-8.0); NEUTROPHILS % 74.3 % (40.0-76.0); PLATELET 495 x1000/uL (130-400); RED BLOOD CELL COUNT 5.23 mill/uL (4.2-5.4)
[2022-01-21 12:07] LABS: CHLORIDE 95 mEq/L (98-107)
[2022-01-21] MEDS ORDERED: ONDANSETRON HCL 4MG/2ML INJ IV ONE (12:15)
[2022-01-21 12:23] LABS: PLATELET ESTIMATE INCREASED
[2022-01-21] MEDS ORDERED: MORPHINE SULFATE 4 MG/ML CPJ (NOT FOR IM USE) IV ONE (13:00)
[2022-01-21] MEDS ORDERED: IPRATROPIUM/ALBUTEROL 0.5-3(2.5)MG/3ML NEB NEB PRN (14:00)
[2022-01-21] MEDS ORDERED: PIPERACILLIN/TAZ 3.375G PREMIX 50 ML IV SCH (14:00)
[2022-01-21] MEDS ORDERED: HALOPERIDOL LACTATE 5MG/ML VIAL IM PRN (14:00)
[2022-01-21] MEDS ORDERED: GUAIFENESIN 200MG/10ML SUGAR FREE UDC PO PRN (14:00)
[2022-01-21] MEDS ORDERED: ZOLPIDEM TARTRATE 5MG TABLET PO PRN (14:00)
[2022-01-21] MEDS ORDERED: ONDANSETRON HCL 4MG/2ML INJ IV PRN (14:00)
[2022-01-21] MEDS ORDERED: DOCUSATE SODIUM 100MG CAPSULE PO PRN (14:00)
[2022-01-21] MEDS ORDERED: CLONIDINE 0.1MG TABLET PO PRN (14:00)
[2022-01-21] MEDS ORDERED: ACETAMINOPHEN 325MG TABLET PO PRN ×2 (14:00)
[2022-01-21] MEDS ORDERED: NITROGLYCERIN 0.4MG TABLET SL SL PRN (14:00)
[2022-01-21] MEDS ORDERED: MAGNESIUM/ALUMINUM HYDROXIDE/SIMETHICONE 30ML UDC PO PRN (14:00)
[2022-01-21] MEDS ORDERED: PIPERACILLIN/TAZOBACTAM 3.375G in DEXT 5% WATER 50ML IV SCH (14:30)
[2022-01-21 14:40] LABS: HCG SCREEN NEGATIVE
[2022-01-21] MEDS ORDERED: VANCOMYCIN 1250MG in DEXTROSE 5% WATER 250ML IV NR (15:00)
[2022-01-21] MEDS ORDERED: ENOXAPARIN 40MG/0.4ML SYR SUBCUT SCH (15:00)
[2022-01-21 15:19] LABS: ETHANOL BLOOD < 10 mg/dL; TOTAL IRON BINDING CAPACITY 427 ug/dL (250-450)
[2022-01-21 15:34] LABS: VITAMIN B12 SERUM 1389 pg/mL (211-911)
[2022-01-21] MEDS: NITROGLYCERIN OINT 1GM/INCH UDPKT TD SCH ×2 (15:50→21:45)
[2022-01-21] MEDS: DEXT 5%/LACTATED RINGERS 1,000 ML IV SCH (15:50)
[2022-01-21] MEDS ORDERED: IOHEXOL-350 100 ML BOTTLE ONE (16:28)
[2022-01-21] MEDS ORDERED: HYDROCODONE/ACETAMINOPHEN 5/325MG TABLET PO PRN (16:30)
[2022-01-21] MEDS: CARVEDILOL 3.125 MG TABLET PO SCH (17:05)
[2022-01-21] MEDS: IPRATROPIUM/ALBUTEROL 0.5-3(2.5)MG/3ML NEB HHN SCH ×2 (17:43→21:16)
[2022-01-21] MEDS: MORPHINE SULFATE 2 MG/ML CPJ (NOT FOR IM USE) IV PRN ×2 (18:04→22:32)
[2022-01-21] MEDS ORDERED: PIPERACILLIN/TAZ 3.375G PREMIX 50 ML IV NR (20:30)
[2022-01-21] MEDS ORDERED: NALOXONE HCL 0.4MG/ML VIAL IV PRN (20:30)
[2022-01-21] MEDS: GUAIFENESIN 600MG ER TABLET PO SCH (21:39)
[2022-01-21] MEDS: FAMOTIDINE 20MG TABLET PO SCH (21:40)
[2022-01-22] MEDS: IPRATROPIUM/ALBUTEROL 0.5-3(2.5)MG/3ML NEB HHN SCH ×6 (00:26→12:40)
[2022-01-22 01:32] LABS: CREATINE KINASE 133 IU/L (26-192); CREATINE KINASE MB FRACTION < 1.0 ng/mL (0.5-3.6)
[2022-01-22] MEDS ORDERED: VANCOMYCIN 1,000 MG in DEXT 5% WATER 250 ML IV SCH (03:00)
[2022-01-22] MEDS ORDERED: VANCOMYCIN 1G PREMIX 200 ML IV SCH ×2 (03:00→21:00)
[2022-01-22] MEDS: DEXT 5%/LACTATED RINGERS 1,000 ML IV SCH (04:55)
[2022-01-22] MEDS: MORPHINE SULFATE 2 MG/ML CPJ (NOT FOR IM USE) IV PRN (05:11)
[2022-01-22] MEDS ORDERED: PIPERACILLIN/TAZOBACTAM 3.375G in DEXT 5% WATER 50ML IV SCH (06:00)
[2022-01-22] MEDS: CARVEDILOL 3.125 MG TABLET PO SCH (06:12)
[2022-01-22] MEDS: NITROGLYCERIN OINT 1GM/INCH UDPKT TD SCH (06:13)
[2022-01-22 06:42] LABS: CHLORIDE 95 mEq/L (98-107)
[2022-01-22 06:45] LABS: BASOPHILS % 0.3 % (0.0-2.0); EOSINOPHILS % 3.2 % (0.0-5.0); HEMATOCRIT. 33.3 % (36.0-48.0); HEMOGLOBIN. 10.9 g/dL (12.0-16.0); LYMPHOCYTES % 8.3 % (20.0-50.0); MEAN CORPUSCULAR HEMOGLOBIN 24.1 pg (28.0-32.0); MEAN CORPUSCULAR VOLUME 73.6 fL (81.0-99.0); MEAN PLATELET VOLUME 7.9 fl (7.4-10.4); MONOCYTES % 9.3 % (2.0-8.0); NEUTROPHILS % 78.9 % (40.0-76.0); PLATELET 300 x1000/uL (130-400); RED BLOOD CELL COUNT 4.52 mill/uL (4.2-5.4); RED CELL DISTRIBUTION WIDTH 22.7 % (11.6-14.6)
[2022-01-22 06:50] LABS: PHOSPHORUS 3.8 mg/dL (2.5-4.9)
[2022-01-22] MEDS: FAMOTIDINE 20MG TABLET PO SCH (09:15)
[2022-01-22] MEDS: GUAIFENESIN 600MG ER TABLET PO SCH (09:15)
[2022-01-22 14:00] VITALS: BP 126/62
[2022-01-22] MEDS ORDERED: PHENOL/SODIUM PHENOLATE 1.4% SRPAY 177ML MM PRN (14:30)
[2022-01-22] MEDS ORDERED: PIPERACILLIN/TAZ 3.375G PREMIX 50 ML IV NR (19:45)
[2022-01-23] MEDS ORDERED: PIPERACILLIN/TAZOBACTAM 3.375G in DEXT 5% WATER 50ML IV SCH (06:00)
== END 2022-01-22 14:57 | disposition left against medical advice (07) | DRG 143 ==
LOC: ER 10:30 → MICUSO 13:11 → EDBEDREQ 13:15 → EDBEDREQTM 13:15 → EDBEDREQSVC 01-22 00:44
PROVIDERS: ADMIT Internal Medicine; ATTEND Internal Medicine
DX: J95.03 Malfunction of tracheostomy stoma (principal); J96.20 Acute and chronic respiratory failure, unspecified whether with hypoxia or hypercapnia; E44.1 Mild protein-calorie malnutrition; E87.1 Hypo-osmolality and hyponatremia; F10.10 Alcohol abuse, uncomplicated; D50.9 Iron deficiency anemia, unspecified; F12.90 Cannabis use, unspecified, uncomplicated; I16.1 Hypertensive emergency; Z53.29 Procedure and treatment not carried out because of patient's decision for other reasons; Z82.49 Family history of ischemic heart disease and other diseases of the circulatory system; Y83.8 Other surgical procedures as the cause of abnormal reaction of the patient, or of later complication, without mention of misadventure at the time of the procedure; Z68.26 Body mass index [BMI] 26.0-26.9, adult
CPT/HCPCS: 36415; 70360; 71045; 71275; 80053; 80320; 82550; 82553; 82607; 82746; 83540; 83550; 83605; 83735; 84100; 84145; 84439; 84443; 84484; 84703; 85025; 85379; 93005; 93970; 94640; 99285; J1650; J1885; J2270; J2405; J2543; J3370; J7060; Q9967; G0480